=== PATIENT | female | born 1975 | race Caucasian/White ===

== ENCOUNTER 2016-05-31 15:01 | Outpatient (RCR) | payer OTHER ==
[~2016-05-31 15:01] MED LIST: /DULO30CA OR; /LAMO10TA OR; /PANT40TA OR; ABIL10TA; ABIL5TAB; AMBI5TAB; COLA100C2 OR; EFFE150C; EFFEXOR XR; Effexor XR OR; KLON0.5T; KLON0.5T OR; KLON1TAB OR; LAMI25TA OR; LOTRISONE; PAXI20TA OR; TRAZ50TA OR; ZYPR5TAB2 PO; [UNRECOGNIZED DRUG - OTHER] TOP
== END 2016-06-01 ==
LOC: M PT 15:01
PROVIDERS: ATTEND Orthopaedic Surgery
DX: Z51.89 Encounter for other specified aftercare (principal); M54.12 Radiculopathy, cervical region

== ENCOUNTER → 2017-08-16 | Outpatient (REF) ==
[2017-08-18 08:06] LABS: HERPES ZOSTER, VARICELLA IgG 263 index (Immune >165)
== END ==
LOC: M LAB 14:24
DX: Z00.00 Encounter for general adult medical examination without abnormal findings (principal)

== ENCOUNTER → 2018-02-10 | Outpatient (CLI) | payer BC | LOC: M WHC 15:15 | DX: Z12.31 Encounter for screening mammogram for malignant neoplasm of breast (principal); Z80.0 Family history of malignant neoplasm of digestive organs | CPT/HCPCS: 77067 ==

== ENCOUNTER → 2018-02-10 | Outpatient (REF) | payer BC ==
[2018-02-14 15:09] LABS: HPV HYBRID CAPTURE II Negative (Negative)
== END ==
LOC: M SFHCWAGY 15:41
DX: Z12.4 Encounter for screening for malignant neoplasm of cervix (principal)
CPT/HCPCS: G0123

== ENCOUNTER → 2018-06-21 | Outpatient (REF) | payer BC | LOC: M LAB REF 18:24 | PROVIDERS: ATTEND Nurse Practitioner Women's Health | DX: C50.412 Malignant neoplasm of upper-outer quadrant of left female breast (principal) ==

== ENCOUNTER → 2018-09-02 | Outpatient (CLI) | payer BC ==
[~2018-09-02] MED LIST changes: -/DULO30CA OR; -/LAMO10TA OR; -/PANT40TA OR; +CYMB1CAP5 OR; +LAMI1TAB7 OR; +PROT1TAB2 OR
--- NOTE | 2018-09-02 14:19 | ECHO ---
DATE OF STUDY: 09/02/2018 REFERRING PHYSICIAN: Dr. Zenobia Richardson INDICATION: Breast cancer. HEIGHT: 163 cm. WEIGHT: 105 kg. DIMENSIONS: IVS: 1.0 LV: 5.0 LVPW: 1.0 LA: 3.9 Aorta: 2.8 IVC: 1.6 Mitral E wave velocity: 89 A wave: 110 E prime septal: 6.6 E prime lateral: 6.3 FINDINGS: The study is of fair technical quality with difficult visualization corresponding to patient's body habitus. Left ventricle is normal size and overall normal systolic function, I estimate left ventricular ejection fraction (LVEF) 55-60%. Right ventricle is also normal size and systolic function. Both atria appear normal. All four cardiac valves were reasonably well seen and appear normal. No pericardial effusion is noted. Inferior vena cava is normal size. Aortic root, aortic arch and visualized segment of abdominal aorta appear normal. Doppler interrogation: normal aortic valvular function, mild mitral insufficiency, trace tricuspid insufficiency, competent pulmonic valve. Estimated pulmonary artery pressure is within normal limits. Mitral inflow pattern and tissue Doppler imaging of mitral annulus reveal grade 1 diastolic dysfunction. CONCLUSIONS: 1. Study is of fair technical quality corresponding to patient's body habitus. 2. Normal LV size with preserved LV systolic function and grade 1 diastolic dysfunction. 3. No significant valvular disease. 4. Likely normal central venous pressure and normal pulmonary artery pressure. COMMENT: Subacute bacterial endocarditis (SBE) prophylaxis is not recommended. MTDD
== END ==
LOC: M CARPUL 09:01
PROVIDERS: ATTEND Internal Medicine Hematology & Oncology
DX: Z17.0 Estrogen receptor positive status [ER+] (principal); C50.911 Malignant neoplasm of unspecified site of right female breast

== ENCOUNTER → 2018-12-08 | Outpatient (CLI) | payer BC ==
[~2018-12-08] MED LIST changes: +BUSP5TA PO; +CLON1TAB8 PO; +FLUO10CA15 PO; +HYDR50TA70 PO; +PARO40TA3 PO; +TRAZ-252 PO
--- NOTE | 2018-12-08 21:09 | ECHO ---
DATE OF PROCEDURE: 12/08/2018 DATE OF : 1975 AGE: 43 REFERRING PROVIDER: Dr. Richardson PATIENT LOCATION: Outpatient. REASON FOR THE ECHOCARDIOGRAM: Chemotherapy drug monitoring. 2D MEASUREMENTS: IVS: 1.0 cm LV: 5.1 cm LVPW: 1.0 cm LA: 4.0 cm Aorta: 2.8 cm RV: 2.7 cm IVC: 2.4 cm DOPPLER MEASUREMENTS: Peak velocity across the aortic valve: 1.3 m/s Peak velocity across the LVOT: 0.97 m/s Mitral E: 1.3, Mitral A: 1.0 with a ratio of 1.3 Maximum tricuspid valve velocity: 2.6 m/s 2D COMMENTS: 1. Normal left ventricular size, wall thickness, and normal global left ventricular systolic function. The estimated left ventricular systolic ejection fraction is 60-65%. 2. Mildly enlarged left atrium. Normal right atrium and right ventricle. 3. The atrial septum appeared to be normal without evidence of defect or shunt. 4. Normal aortic root. 5. No pericardial effusion seen. 6. The aortic valve, mitral valve, tricuspid valve, and pulmonic valve appear to be normal. The proximal pulmonary artery branches were not well visualized. 7. The inferior vena cava was mildly enlarged, central venous pressure might be elevated. DOPPLER: It detects moderately severe mitral regurgitation, mild tricuspid regurgitation, mild pulmonic regurgitation. The calculated pulmonary artery systolic pressure varies between 30-40 mmHg. Assessment of the left ventricular diastolic function appeared to be normal. IMPRESSION: 1. Normal global left ventricular systolic and diastolic function. 2. Moderately severe mitral regurgitation with mildly enlarged left atrium. 3. Mild tricuspid regurgitation with mild pulmonary hypertension. 4. Mild pulmonic regurgitation. 5. The global longitudinal strain was reported to be 17.3%, about normal. MTDD
== END ==
LOC: M CARPUL 09:32
PROVIDERS: ATTEND Internal Medicine Hematology & Oncology
DX: Z79.899 Other long term (current) drug therapy (principal); C50.912 Malignant neoplasm of unspecified site of left female breast; Z17.0 Estrogen receptor positive status [ER+]

== ENCOUNTER → 2019-03-17 | Outpatient (CLI) | payer BC ==
[~2019-03-17] MED LIST changes: -BUSP5TA PO; -CLON1TAB8 PO; -FLUO10CA15 PO; -HYDR50TA70 PO; -PARO40TA3 PO; -TRAZ-252 PO
--- NOTE | 2019-03-17 13:48 | ECHO ---
DATE OF PROCEDURE: 03/17/2019 REFERRING PHYSICIAN: Dr. Moreno INDICATION: Chemotherapy. Height 163 cm, weight 104 kg. DIMENSIONS: IVS: 1.0 LV: 5.1 LVPW: 1.0 LA: 4.1 Aorta: 2.7 RV: 2.6 IVC: 1.5 Left atrial volume index: 34 Mitral E wave velocity: 79 A wave: 89 E prime septal: 6.3 E prime lateral: 5.8 FINDINGS: The study is of acceptable technical quality. The patient is in sinus rhythm. Left ventricle is of normal size and systolic function, I estimate left ventricular ejection fraction (LVEF) approximately 60-65%. Computer calculated left ventricle ejection fraction was 51%, which in my opinion is not accurate determination. Right ventricle is normal size and systolic function. Left atrium is mildly to moderately enlarged. Right atrium appears to be normal size. All four cardiac valves were reasonably well seen and appear normal. No pericardial effusion is noted. Inferior vena cava is normal size. Aortic root and aortic arch appear normal. Doppler interrogation reveals competent aortic valve. There is mild mitral insufficiency. There is trace tricuspid insufficiency. Calculated pulmonary artery pressure is within normal limits. Pulmonic valve is functionally competent. Mitral inflow pattern and tissue Doppler imaging of mitral annulus revealed grade 1 diastolic dysfunction. CONCLUSIONS: 1. Study is of good technical quality. 2. Normal LV size and systolic function. Grade 1 diastolic dysfunction. 3. No hemodynamically significant valvular disease. 4. Normal central venous pressure and normal pulmonary artery pressure. 5. Compared to report of echocardiogram from November 2018, the left ventricular systolic function remains preserved but severity of mitral insufficiency is much less on today's study.
== END ==
LOC: M CARPUL 10:26
PROVIDERS: ATTEND Internal Medicine Hematology & Oncology
DX: Z51.81 Encounter for therapeutic drug level monitoring (principal); Z79.899 Other long term (current) drug therapy

== ENCOUNTER 2019-04-17 10:07 | Inpatient (IN) | payer BC ==
[~2019-04-17] VITALS: Ht 165.1 cm; Wt 104.3 kg
[2019-04-17] MEDS ORDERED: CLON1TAB8 PO (10:15)
[2019-04-17 10:48] LABS: HEMATOCRIT 42.9 % (36.0-47.0); HEMOGLOBIN 13.7 g/dl (12.0-15.5); MEAN CORPUSCULAR HEMOGLOBIN 24.9 pg (27.0-33.0); MEAN CORPUSCULAR HGB CONC 31.9 g/dl (32.0-36.5); PLATELET COUNT, AUTOMATED 345 10^3/uL (150-450); WHITE BLOOD COUNT 7.4 10^3/uL (4.0-10.0)
[2019-04-17 11:11] LABS: HCG, SERUM QUALITATIVE NEGATIVE (NEGATIVE)
[2019-04-17 11:12] LABS: AMPHETAMINES LEVEL URINE NEGATIVE (NEGATIVE); BARBITURATES URINE NEGATIVE (NEGATIVE); BENZODIAZEPINES URINE NEGATIVE (NEGATIVE); CANNABINOIDS URINE NEGATIVE (NEGATIVE); COCAINE METABOLITE URINE NEGATIVE (NEGATIVE); METHADONE URINE NEGATIVE (NEGATIVE); OPIATES URINE NEGATIVE (NEGATIVE); PHENCYCLIDINE URINE NEGATIVE (NEGATIVE)
[2019-04-17 11:20] LABS: ACETAMINOPHEN LEVEL 6.5 UG/ML (10.0-30.0); ALBUMIN 3.4 GM/DL (3.2-5.2); ALT/SGPT 18 U/L (12-78); BILIRUBIN,DIRECT 0.1 MG/DL (0.0-0.2); BILIRUBIN,TOTAL 0.6 MG/DL (0.2-1.0); BLOOD UREA NITROGEN 9 MG/DL (7-18); CALCIUM LEVEL 8.9 MG/DL (8.5-10.1); CARBON DIOXIDE LEVEL 26 MEQ/L (21-32); CHLORIDE LEVEL 108 MEQ/L (98-107); CREATININE FOR GFR 1.03 MG/DL (0.55-1.30); ETHYL ALCOHOL (ETHANOL) < 0.003 % (0.000-0.010); GLOMERULAR FILTRATION RATE > 60.0 (>58); GLUCOSE, FASTING 98 MG/DL (70-100); POTASSIUM SERUM 3.9 MEQ/L (3.5-5.1); SALICYLATE LEVEL < 1.7 MG/DL (5.0-30.0); SODIUM LEVEL 141 MEQ/L (136-145); TOTAL PROTEIN 6.9 GM/DL (6.4-8.2)
[2019-04-17] MEDS ORDERED: PARO40TA3 PO (13:17)
[2019-04-17] MEDS ORDERED: MOM 30ML SUSPENSION UDC PO PRN (15:45)
[2019-04-17] MEDS ORDERED: MAALOX 30 ML SUSP *UDC PO PRN (15:45)
[2019-04-17 17:00] VITALS: BP 148/83
[2019-04-17] MEDS: traZODone 50 MG TAB PO PRN (20:57)
[2019-04-18 06:31] VITALS: BP 124/66
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
[2019-04-18] MEDS ORDERED: hydrOXYzine 50 MG TAB PO PRN (11:15)
[2019-04-18] MEDS ORDERED: clonazePAM 0.5 MG TAB PO ONE (12:00)
[2019-04-18] MEDS ORDERED: busPIRone 5 MG TAB PO ONE (12:00)
[2019-04-18] MEDS ORDERED: FLUoxetine 20 MG CAP PO ONE (12:00)
[2019-04-18] MEDS ORDERED: PARoxetine 20 MG TAB PO ONE (12:00)
[2019-04-18] MEDS: ACETAMINOPHEN TAB 650MG DOSE (2X325MG) PO PRN (14:31)
[2019-04-18] MEDS: busPIRone 5 MG TAB PO SCH ×2 (15:37→20:01)
[2019-04-18 16:32] VITALS: BP 122/66
[2019-04-18] MEDS: clonazePAM 0.5 MG TAB PO SCH (20:00)
[2019-04-19 06:10] VITALS: BP 142/66
[2019-04-19] MEDS: FLUoxetine 20 MG CAP PO SCH (09:09)
[2019-04-19] MEDS: busPIRone 5 MG TAB PO SCH ×3 (09:10→20:17)
[2019-04-19] MEDS: clonazePAM 0.5 MG TAB PO SCH ×2 (09:10→20:17)
[2019-04-19] MEDS: PARoxetine 20 MG TAB PO SCH (09:10)
[2019-04-19] MEDS: ACETAMINOPHEN TAB 650MG DOSE (2X325MG) PO PRN (09:14)
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
--- NOTE | 2019-04-19 13:13 | HPEPDOC ---
General Date of Admission Apr 17, 2019 at 15:38 Date of Service: Apr 19, 2019 Chief Complaint The patient is a 44-year-old female admitted with a reason for visit of Unspecified Depressive Disorder. Source: Patient Exam Limitations: No limitations Associated Symptoms: Denies Symptoms History of Present Illness Mrs. Estrella is a 44 year old female admitted to the [facility] due to Depression and Suicidal Ideation. Mrs. Estrella is being assessed by the hospitalist team for medical comorbidities. Pt only takes her psych meds. Pt denied any acute or chronic medical issues at this time. Home Medications Scheduled Paroxetine HCl (Paroxetine) 40 Mg Tablet, 40 MG PO DAILY, (Reported) Scheduled PRN Clonazepam (Clonazepam) 1 Mg Tablet, 1 MG PO DAILY PRN for ANXIETY, (Reported) Allergies Coded Allergies: No Known Drug Allergies (Verified Allergy, Unknown, 04/17/19) Past Medical History Medical History Depression Breast Cancer (L breast) HTN Cholelithiasis Pyelonephritis Surgical History Cholecystectomy Lumpectomy (L breast) Family History Significant Family History: Heart disease (Mother ), Other (Alcoholism - siblings, father. Depression - mother and sisters) Social History * Smoker: former Smoker Alcohol: rarely Drugs: denies A-FIB/CHADSVASC A-FIB History Current/History of A-Fib/PAF?: No Current PO Anticoag Therapy: No Review of Systems Constitutional: Denies: Chills, Fever, Night Sweats Eyes: Denies: Pain ENT: Denies: Head Aches Skin: Denies: Rash Pulmonary: Denies: Dyspnea, Cough Cardiovascular: Denies: Chest Pain, Palpitations, Lt Headedness Gastrointestinal: Denies: Nausea, Vomiting, Abdominal Pain Genitourinary: Denies: Dysuria, Retention Hematologic: Denies: Bruising Musculoskeletal: Denies: Neck Pain, Back Pain, Joint Pain, Muscle Pain, Spasms Neurological: Denies: Weakness, Numbness Psych: Reports: Mood Normal; Denies: Depression, Memory Issues Physical Examination General Exam: Positive: Alert, Cooperative, No Acute Distress Eye Exam: Positive: PERRLA, Conjunctiva & lids normal ENT Exam: Positive: Atraumatic, Mucous membr. moist/pink, Pharynx Normal Neck Exam: Positive: Supple; Negative: thyromegaly Chest Exam: Positive: Clear to auscultation, Normal air movement Heart Exam: Positive: Rate Normal, Normal S1, Normal S2; Negative: Murmurs, Rubs Abdomen Exam: Positive: Soft; Negative: Tenderness Extremity Exam: Positive: Normal pulses; Negative: Clubbing, Cyanosis, Edema Skin Exam: Positive: Nl turgor and temperature Neuro Exam: Positive: Normal Gait, Normal Speech, Cranial Nerves 3-12 NL Psych Exam: Positive: Mood NL, Oriented x 3 Vital Signs Vital Signs Date Time Temp Pulse Resp B/P (MAP) Pulse Ox O2 Delivery O2 Flow Rate FiO2 04/19/19 06:10 97.5 65 16 142/66 (91) 04/18/19 06:31 Room Air 04/17/19 17:00 100 Assessment/Plan Mrs. Estrella is a 44 year old female admitted to the [facility] due to Depression and Suicidal Ideation. Mrs. Estrella is being assessed by the hospitalist team for medical comorbidities. Pt has a PMHx that includes: Breast Cancer (L breast), HTN, Cholelithiasis, Pyelonephritis. Pt only takes her psych meds at this time. She was Rx Tamoxifen following a L-sided lumpectomy, chemo and radiation. She has decided to d/c that medication. Oncologist aware. Pt denied any other acute or chronic medical issues at this time. Depression: - Management per psychiatry Breast Cancer (L breast): - pt decided to d/c chemo antineoplastic medication - oncologist aware HTN - no Rx medications at this time Medicine will sign off at this time. Please re-consult as needed. Plan / VTE VTE Prophylaxis Ordered?: No DION MAR PA-C Apr 19, 2019 13:13
[2019-04-19 16:34] VITALS: BP 150/90
[2019-04-20 06:16] VITALS: BP 142/72
[2019-04-20] MEDS: FLUoxetine 20 MG CAP PO SCH (09:04)
[2019-04-20] MEDS: clonazePAM 0.5 MG TAB PO SCH ×2 (09:05→21:20)
[2019-04-20] MEDS: PARoxetine 20 MG TAB PO SCH (09:05)
[2019-04-20] MEDS: busPIRone 5 MG TAB PO SCH ×3 (09:05→21:20)
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
[2019-04-20] MEDS ORDERED: PILL CUTTER 1 EACH XX PRN (11:15)
[2019-04-20 16:06] VITALS: BP 153/72
[2019-04-21 06:36] VITALS: BP 145/84
[2019-04-21] MEDS: clonazePAM 0.5 MG TAB PO SCH ×2 (08:22→21:07)
[2019-04-21] MEDS: busPIRone 5 MG TAB PO SCH ×3 (08:22→21:07)
[2019-04-21] MEDS: PARoxetine 10MG TABLET PO SCH (08:22)
[2019-04-21] MEDS: FLUoxetine 10 MG CAP PO SCH (08:22)
--- NOTE | 2019-04-21 14:29 | MHIPN ---
DATE: 04/21/2019 VITAL SIGNS: Blood pressure 145/84. Pulse 64. Temperature 97.9. CHIEF COMPLAINT: Feels upset. SUBJECTIVE: Seen for followup, in the presence of staff. Has been feeling upset this morning, says had a phone call from her who now wishes for a separation, but still wants to go for marriage counseling, this is a change of stance on his part apparently. She feels tired emotionally. Sleep is fair. Appetite has gone down. She has been using fluids. Denies any active suicidal thoughts or intents. MENTAL STATUS EXAMINATION: She is fairly neat. She is cooperative. No agitation. No psychomotor retardation. Fair to good eye contact. She denies any active suicidal thoughts at present or any such plans, but feels emotionally tired. No homicidal ideas or intents. No evidence of any psychosis. Cognition grossly intact. Judgment and insight are fair. ASSESSMENT: Major depressive disorder. PLAN: Continue current observations and care, is being titrated off clonazepam. She is also on Prozac and Paxil, these are being cross-titrated, as she has not found the Paxil helpful. She requests Zydis Zyprexa rather using hydroxyzine, she has used Zydis in the past, and has found it to be useful, and I find that that is quite fair, we will prescribe her the Zydis and discontinue the hydroxyzine. The Zydis is to be used temporarily to help with diminishing her distress and agitation. Will continue with the rest of the observations, and she is to be encouraged to participate in activities in the unit. She agrees with the plan.
[2019-04-21 15:57] VITALS: BP 152/68
[2019-04-21] MEDS: OLANZapine ORAL DISINTEGRATING TAB 5MG PO PRN (17:38)
[2019-04-21] MEDS: traZODone 50 MG TAB PO PRN (21:07)
[2019-04-22 06:43] VITALS: BP 156/66
[2019-04-22] MEDS: FLUoxetine 10 MG CAP PO SCH (09:01)
[2019-04-22] MEDS: busPIRone 5 MG TAB PO SCH ×3 (09:01→21:32)
[2019-04-22] MEDS: PARoxetine 10MG TABLET PO SCH (09:01)
[2019-04-22] MEDS: clonazePAM 0.5 MG TAB PO SCH ×2 (09:02→21:33)
[2019-04-22] MEDS: OLANZapine ORAL DISINTEGRATING TAB 5MG PO PRN (13:33)
[2019-04-22 15:37] VITALS: BP 125/58
[2019-04-23 06:42] VITALS: BP 135/80
[2019-04-23] MEDS: clonazePAM 0.5 MG TAB PO SCH (08:17)
[2019-04-23] MEDS: PARoxetine 10MG TABLET PO SCH (08:17)
[2019-04-23] MEDS: busPIRone 5 MG TAB PO SCH (08:18)
[2019-04-23] MEDS: FLUoxetine 10 MG CAP PO SCH (08:18)
[2019-04-23] MEDS ORDERED: FLUO10CA15 PO (08:47)
[2019-04-23] MEDS ORDERED: BUSP5TA PO (08:47)
[2019-04-23] MEDS ORDERED: TRAZ-252 PO (08:47)
[2019-04-23] MEDS ORDERED: HYDR50TA70 PO (08:47)
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
== END 2019-04-23 11:25 | disposition home or self-care (01) | DRG 754 ==
LOC: M ED 10:07 → M ED INP 15:38 → M PSY 17:22
PROVIDERS: ADMIT Psychiatry & Neurology Psychiatry; ATTEND Psychiatry & Neurology Psychiatry
DX: F32.9 Major depressive disorder, single episode, unspecified (principal); F43.23 Adjustment disorder with mixed anxiety and depressed mood; F41.9 Anxiety disorder, unspecified; Z85.3 Personal history of malignant neoplasm of breast; Z63.0 Problems in relationship with spouse or partner; Z79.899 Other long term (current) drug therapy; Z90.49 Acquired absence of other specified parts of digestive tract; Z92.21 Personal history of antineoplastic chemotherapy; Z92.3 Personal history of irradiation; Z87.891 Personal history of nicotine dependence; Z81.8 Family history of other mental and behavioral disorders; I10 Essential (primary) hypertension

== ENCOUNTER → 2019-04-27 | Outpatient (CLI) | payer BC ==
[~2019-04-27] MED LIST changes: +BUSP5TA PO; +CLON1TAB8 PO; +FLUO10CA15 PO; +HYDR50TA70 PO; +PARO40TA3 PO; +TRAZ-252 PO
--- NOTE | 2019-05-07 15:31 | DEXA ---
AP SPINE L1 - L4 1.248 0.4 0.4 LT FEMUR TOTAL 0.994 -0.1 0.2 LT NECK 0.932 -0.8 -0.2 RT FEMUR TOTAL 1.076 0.5 0.8 RT NECK 1.044 0.0 0.6 TOTAL BODY TOTAL OTHER COMMENTS: Normal bone densitometry of the spine and hips. FOLLOW-UP: Recommendation for the next bone density exam: 5 years. MAURICIO
== END ==
LOC: M WHC 12:37
PROVIDERS: ATTEND Internal Medicine Hematology & Oncology
DX: M89.9 Disorder of bone, unspecified (principal)

== ENCOUNTER 2019-06-07 02:40 | Emergency (ER) | payer BC ==
[~2019-06-07] VITALS: Ht 165.1 cm; Wt 102.3 kg
[2019-06-07] MEDS ORDERED: PAXI40TA10 PO (03:05)
[2019-06-07] MEDS ORDERED: LORazepam 0.5 MG TAB PO ONE (03:45)
[2019-06-07 05:06] LABS: BASO % 0.3 % (0.0-1.0); EOS # 0.1 10^3/uL (0.0-0.5); EOS % 1.6 % (0.0-3.0); HEMATOCRIT 44.1 % (36.0-47.0); HEMOGLOBIN 13.5 g/dl (12.0-15.5); LYMPH # 1.1 10^3/uL (1.5-5.0); LYMPH % 15.8 % (24.0-44.0); MEAN CORPUSCULAR HEMOGLOBIN 24.5 pg (27.0-33.0); MEAN CORPUSCULAR HGB CONC 30.6 g/dl (32.0-36.5); MEAN CORPUSCULAR VOLUME 80.2 fl (80.0-96.0); MONO # 0.4 10^3/uL (0.0-0.8); MONO % 5.9 % (0.0-5.0); NEUTROPHILS # 5.2 10^3/uL (1.5-8.5); NEUTROPHILS % 75.8 % (36.0-66.0); PLATELET COUNT, AUTOMATED 321 10^3/uL (150-450); WHITE BLOOD COUNT 6.9 10^3/uL (4.0-10.0)
[2019-06-07 05:26] LABS: BLOOD UREA NITROGEN 13 MG/DL (7-18); CALCIUM LEVEL 8.8 MG/DL (8.5-10.1); CARBON DIOXIDE LEVEL 29 MEQ/L (21-32); CHLORIDE LEVEL 112 MEQ/L (98-107); CK-MB VALUE MASS < 1.0 NG/ML (<3.6); CPK CREATINE PHOSPHOKINASE 102 U/L (26-192); CREATININE FOR GFR 0.86 MG/DL (0.55-1.30); GLOMERULAR FILTRATION RATE > 60.0 (>58); GLUCOSE, FASTING 109 MG/DL (70-100); MB/CK RELATIVE INDEX 0.98 (< OR =4); POTASSIUM SERUM 4.2 MEQ/L (3.5-5.1); SODIUM LEVEL 147 MEQ/L (136-145); TROPONIN I < 0.02 NG/ML (< 0.10)
[2019-06-07 06:54] VITALS: BP 144/69
--- NOTE | 2019-06-07 07:37 | REP ---
Portable chest, 04:54 a.m., single AP view with the the patient upright: Comparison is the PA and lateral chest of 03/04/2015. There has been interval placement of a right IJ Ljwhgx-J-Jkiv catheter with the tip in the superior vena cava in satisfactory location. There is no pneumothorax or pleural fluid collection. Lung alonso are clear. Cardiac size normal. The michelle, mediastinum, skeletal structures are unremarkable. Impression: The right IJ Amghfo-F-Ampw catheter. Otherwise, negative portable chest. Electronically Signed by Yann Munoz MD 06/07/2019 07:29 A
--- NOTE | 2019-06-07 15:15 | ECGEPIP ---
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
== END 2019-06-07 06:55 | disposition home or self-care (01) ==
LOC: M ED 02:40
DX: F41.0 Panic disorder [episodic paroxysmal anxiety] (principal); F41.1 Generalized anxiety disorder; Z85.3 Personal history of malignant neoplasm of breast; Z45.2 Encounter for adjustment and management of vascular access device; Z79.899 Other long term (current) drug therapy

== ENCOUNTER → 2019-06-16 | Outpatient (CLI) | payer BC ==
[~2019-06-16] MED LIST changes: +PAXI40TA10 PO
--- NOTE | 2019-06-16 14:53 | ECHO ---
DATE OF PROCEDURE: 06/16/2019 REFERRING PHYSICIAN: Dr. Zenobia Richardson INDICATION: Chemotherapy. HEIGHT: 5 feet 5 inches. WEIGHT: 223 pounds. DIMENSIONS: IVS - 1.1 LV - 5.0 LVW - 1.1 LA - 4.0 Aorta - 3.0 RV - 3.9. Left atrium volume index -35 IVC - 1.9 Mitral E wave velocity - 86, A-wave 97 E prime septal - 6.2, E prime lateral - 7.2 FINDINGS: The study is of acceptable technical quality. The patient is in sinus rhythm. Left ventricle is of normal size and normal systolic function. I estimate LV ejection fraction (EF) around 60-65%. Computer calculated left ventricular ejection fraction (LVEF) is 54%, which seems to me too low. Right ventricle is normal size and systolic function. Both atria are at least mildly enlarged. Considering left atrial volume index there is moderate left atrial enlargement. Aortic, mitral, tricuspid and pulmonic valves were all reasonably well seen. They all appear grossly normal. No pericardial effusion is noted. Inferior vena cava is on upper limits of normal size. Aortic root and aortic arch appear normal. Limited views of abdominal aorta also appear intact. Doppler interrogation reveals no aortic stenosis or insufficiency. There is trace mitral and tricuspid insufficiency. Calculated pulmonary artery pressure is within normal limits. Mitral inflow pattern and tissue Doppler imaging of mitral annulus reveal grade 1 diastolic dysfunction. There is reduced global longitudinal strain that was calculated as negative 16% CONCLUSION: 1. Study is of acceptable technical quality, the patient is in sinus rhythm. 2. Normal LV size and systolic function, grade 1 diastolic dysfunction. 3. No hemodynamically significant valvular disease. 4. Normal central venous pressure and likely normal pulmonary artery pressure. 5. Global longitudinal strain -16%. COMMENT: Subacute bacterial endocarditis (SBE) prophylaxis is not recommended. MTDD
== END ==
LOC: M CARPUL 08:59
PROVIDERS: ATTEND Internal Medicine Hematology & Oncology
DX: Z51.81 Encounter for therapeutic drug level monitoring (principal); Z79.899 Other long term (current) drug therapy

== ENCOUNTER 2019-09-24 16:00 | Emergency (ER) | payer BC ==
[~2019-09-24] VITALS: Ht 165.1 cm; Wt 104.6 kg
[2019-09-24] MEDS ORDERED: VALSARTAN 80 MG TAB (DIOVAN) PO ONE (16:30)
[2019-09-24 16:53] VITALS: BP 205/121
[2019-09-24 16:57] LABS: HEMATOCRIT 39.8 % (36.0-47.0); MEAN CORPUSCULAR HEMOGLOBIN 25.6 pg (27.0-33.0); MEAN CORPUSCULAR HGB CONC 32.7 g/dl (32.0-36.5); MEAN CORPUSCULAR VOLUME 78.3 fl (80.0-96.0); PLATELET COUNT, AUTOMATED 317 10^3/uL (150-450); RED BLOOD COUNT 5.08 10^6/uL (4.00-5.40); WHITE BLOOD COUNT 8.3 10^3/uL (4.0-10.0)
[2019-09-24] MEDS ORDERED: VALS1TAB66 (17:06)
[2019-09-24] MEDS ORDERED: CLON1TAB8 (17:06)
[2019-09-24 17:22] LABS: HCG, SERUM QUALITATIVE NEGATIVE (NEGATIVE)
[2019-09-24 17:26] LABS: ACETAMINOPHEN LEVEL < 2.0 UG/ML (10.0-30.0); ALBUMIN 3.7 GM/DL (3.2-5.2); ALT/SGPT 32 U/L (12-78); BILIRUBIN,DIRECT < 0.1 MG/DL (0.0-0.2); BILIRUBIN,TOTAL 0.3 MG/DL (0.2-1.0); BLOOD UREA NITROGEN 16 MG/DL (7-18); CALCIUM LEVEL 8.8 MG/DL (8.5-10.1); CARBON DIOXIDE LEVEL 25 MEQ/L (21-32); CHLORIDE LEVEL 108 MEQ/L (98-107); CREATININE FOR GFR 1.04 MG/DL (0.55-1.30); ETHYL ALCOHOL (ETHANOL) < 0.003 % (0.000-0.010); GLOMERULAR FILTRATION RATE > 60.0 (>58); GLUCOSE, FASTING 117 MG/DL (70-100); POTASSIUM SERUM 3.6 MEQ/L (3.5-5.1); SALICYLATE LEVEL < 1.7 MG/DL (5.0-30.0); SODIUM LEVEL 142 MEQ/L (136-145); TOTAL PROTEIN 6.7 GM/DL (6.4-8.2)
[2019-09-24 17:29] LABS: AMPHETAMINES LEVEL URINE NEGATIVE (NEGATIVE); BARBITURATES URINE NEGATIVE (NEGATIVE); BENZODIAZEPINES URINE POSITIVE (NEGATIVE); CANNABINOIDS URINE NEGATIVE (NEGATIVE); COCAINE METABOLITE URINE NEGATIVE (NEGATIVE); METHADONE URINE NEGATIVE (NEGATIVE); OPIATES URINE NEGATIVE (NEGATIVE); PHENCYCLIDINE URINE NEGATIVE (NEGATIVE)
--- NOTE | 2019-09-24 17:59 | ECGEPIP ---
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
[2019-09-25 02:44] VITALS: BP 122/68
== END 2019-09-25 02:45 ==
LOC: M ED 16:00
DX: R45.851 Suicidal ideations (principal); I10 Essential (primary) hypertension; F33.9 Major depressive disorder, recurrent, unspecified; Z79.899 Other long term (current) drug therapy
CPT/HCPCS: 36415; 80048; 80076; 80307; 81001; 84443; 84703; 85027; 93005; 99284; G0480; U0002

== ENCOUNTER 2019-10-26 16:03 | Emergency (ER) | payer BC ==
[~2019-10-26] VITALS: Ht 165.1 cm; Wt 104.3 kg
[~2019-10-26 16:03] MED LIST changes: +CLON1TAB8; -FLUO10CA15 PO; +FLUO10CA16 PO; +VALS1TAB66
[2019-10-26] MEDS ORDERED: PROP20TA72 PO (16:14)
[2019-10-26] MEDS ORDERED: CLON2TAB7 PO (16:14)
[2019-10-26] MEDS ORDERED: VENL150C43 PO (16:14)
[2019-10-26 17:13] LABS: HEMATOCRIT 42.9 % (36.0-47.0); HEMOGLOBIN 13.7 g/dl (12.0-15.5); MEAN CORPUSCULAR HGB CONC 31.9 g/dl (32.0-36.5); MEAN CORPUSCULAR VOLUME 81.6 fl (80.0-96.0); PLATELET COUNT, AUTOMATED 302 10^3/uL (150-450); RED BLOOD COUNT 5.26 10^6/uL (4.00-5.40); WHITE BLOOD COUNT 9.5 10^3/uL (4.0-10.0)
[2019-10-26 17:36] LABS: AMPHETAMINES LEVEL URINE NEGATIVE (NEGATIVE); BARBITURATES URINE NEGATIVE (NEGATIVE); BENZODIAZEPINES URINE POSITIVE (NEGATIVE); CANNABINOIDS URINE NEGATIVE (NEGATIVE); COCAINE METABOLITE URINE NEGATIVE (NEGATIVE); METHADONE URINE NEGATIVE (NEGATIVE); OPIATES URINE NEGATIVE (NEGATIVE); PHENCYCLIDINE URINE NEGATIVE (NEGATIVE)
[2019-10-26 17:46] LABS: ACETAMINOPHEN LEVEL < 2.0 UG/ML (10.0-30.0); ALBUMIN 3.5 GM/DL (3.2-5.2); ALT/SGPT 19 U/L (12-78); BILIRUBIN,DIRECT < 0.1 MG/DL (0.0-0.2); BILIRUBIN,TOTAL 0.3 MG/DL (0.2-1.0); BLOOD UREA NITROGEN 13 MG/DL (7-18); CALCIUM LEVEL 9.1 MG/DL (8.5-10.1); CARBON DIOXIDE LEVEL 22 MEQ/L (21-32); CHLORIDE LEVEL 110 MEQ/L (98-107); CREATININE FOR GFR 0.91 MG/DL (0.55-1.30); ETHYL ALCOHOL (ETHANOL) < 0.003 % (0.000-0.010); GLOMERULAR FILTRATION RATE > 60.0 (>58); GLUCOSE, FASTING 96 MG/DL (70-100); SALICYLATE LEVEL < 1.7 MG/DL (5.0-30.0); SODIUM LEVEL 138 MEQ/L (136-145); TOTAL PROTEIN 6.7 GM/DL (6.4-8.2)
[2019-10-26 18:03] LABS: HCG, SERUM QUALITATIVE NEGATIVE (NEGATIVE)
--- NOTE | 2019-10-26 21:01 | ECGEPIP ---
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
[2019-10-26 22:41] VITALS: BP 135/87
== END 2019-10-26 22:44 ==
LOC: M ED 16:03
DX: R45.851 Suicidal ideations (principal); F32.9 Major depressive disorder, single episode, unspecified; I10 Essential (primary) hypertension; E66.9 Obesity, unspecified; Z85.3 Personal history of malignant neoplasm of breast; Z79.899 Other long term (current) drug therapy
CPT/HCPCS: 80048; 80076; 80307; 84443; 84703; 85027; 87486; 87581; 87633; 87798; 93005; 99285; G0480

== ENCOUNTER → 2019-12-27 | Outpatient (CLI) | payer BC ==
[~2019-12-27] MED LIST changes: +CLON2TAB7 PO; +PROP20TA72 PO; +VENL150C43 PO
[2019-12-27 15:09] LABS: BLOOD UREA NITROGEN 14 MG/DL (7-18); CREATININE FOR GFR 0.88 MG/DL (0.55-1.30); GLOMERULAR FILTRATION RATE > 60.0 (>58)
== END ==
LOC: M PLALAB 12:41
PROVIDERS: ATTEND Surgery
DX: Z01.812 Encounter for preprocedural laboratory examination (principal)

== ENCOUNTER → 2020-03-19 | Outpatient (CLI) | payer SELFPAY | LOC: M LABSMTC 12:17 | PROVIDERS: ATTEND Pediatrics | DX: Z20.828 Contact with and (suspected) exposure to other viral communicable diseases (principal) ==

== ENCOUNTER → 2020-04-04 | Outpatient (REF) | payer SELFPAY | LOC: M LABSMTC 08:35 → EDSTATUS 13:15 → M LABSMTC 14:01 | PROVIDERS: ATTEND Pediatrics | DX: Z20.828 Contact with and (suspected) exposure to other viral communicable diseases (principal) ==

== ENCOUNTER → 2020-06-17 | Outpatient (REF) | payer BC ==
[2020-06-18 13:56] LABS: CHLAMYDIA DNA AMPLIFICATION NEGATIVE (NEGATIVE); GC DNA AMPLIFICATION NEGATIVE (NEGATIVE)
== END ==
LOC: M SFHCWAGY 09:40
PROVIDERS: ATTEND Nurse Practitioner Women's Health
DX: Z01.419 Encounter for gynecological examination (general) (routine) without abnormal findings (principal); Z11.3 Encounter for screening for infections with a predominantly sexual mode of transmission; Z77.9 Other contact with and (suspected) exposures hazardous to health
CPT/HCPCS: 87624; 87661; G0123

== ENCOUNTER 2020-07-09 08:40 | Emergency (ER) | payer BC, SELFPAY ==
[~2020-07-09] VITALS: Ht 165.1 cm; Wt 95.9 kg
[2020-07-09] MEDS ORDERED: CHARCOAL ACTIVATED LIQUID 25 GM/120 ML BTL PO ONE (08:50)
[2020-07-09 09:08] LABS: BASO % 0.6 % (0.0-1.0); EOS # 0.2 10^3/uL (0.0-0.5); EOS % 2.8 % (0.0-3.0); HEMATOCRIT 43.6 % (36.0-47.0); HEMOGLOBIN 14.1 g/dl (12.0-15.5); LYMPH # 1.4 10^3/uL (1.5-5.0); LYMPH % 21.7 % (24.0-44.0); MEAN CORPUSCULAR HEMOGLOBIN 26.8 pg (27.0-33.0); MEAN CORPUSCULAR HGB CONC 32.3 g/dl (32.0-36.5); MEAN CORPUSCULAR VOLUME 82.7 fl (80.0-96.0); MONO # 0.5 10^3/uL (0.0-0.8); NEUTROPHILS # 4.4 10^3/uL (1.5-8.5); NEUTROPHILS % 67.3 % (36.0-66.0); PLATELET COUNT, AUTOMATED 309 10^3/uL (150-450); RED BLOOD COUNT 5.27 10^6/uL (4.00-5.40); WHITE BLOOD COUNT 6.5 10^3/uL (4.0-10.0)
[2020-07-09 09:39] LABS: ACETAMINOPHEN LEVEL < 2.0 UG/ML (10.0-30.0); ALBUMIN 3.5 GM/DL (3.2-5.2); ALT/SGPT 22 U/L (12-78); BILIRUBIN,DIRECT < 0.1 MG/DL (0.0-0.2); BILIRUBIN,TOTAL 0.2 MG/DL (0.2-1.0); BLOOD UREA NITROGEN 12 MG/DL (7-18); CALCIUM LEVEL 8.7 MG/DL (8.5-10.1); CARBON DIOXIDE LEVEL 23 MEQ/L (21-32); CHLORIDE LEVEL 112 MEQ/L (98-107); CPK CREATINE PHOSPHOKINASE 65 U/L (26-192); CREATININE FOR GFR 0.72 MG/DL (0.55-1.30); ETHYL ALCOHOL (ETHANOL) < 0.003 % (0.000-0.010); GLOMERULAR FILTRATION RATE > 60.0 (>58); GLUCOSE, FASTING 97 MG/DL (70-100); POTASSIUM SERUM 4.2 MEQ/L (3.5-5.1); SALICYLATE LEVEL < 1.7 MG/DL (5.0-30.0); SODIUM LEVEL 142 MEQ/L (136-145); TOTAL PROTEIN 6.6 GM/DL (6.4-8.2)
[2020-07-09 09:41] LABS: HCG, SERUM QUALITATIVE NEGATIVE (NEGATIVE)
[2020-07-09 09:42] LABS: AMPHETAMINES LEVEL URINE NEGATIVE (NEGATIVE); BARBITURATES URINE NEGATIVE (NEGATIVE); BENZODIAZEPINES URINE NEGATIVE (NEGATIVE); CANNABINOIDS URINE NEGATIVE (NEGATIVE); COCAINE METABOLITE URINE NEGATIVE (NEGATIVE); METHADONE URINE NEGATIVE (NEGATIVE); OPIATES URINE NEGATIVE (NEGATIVE); PHENCYCLIDINE URINE NEGATIVE (NEGATIVE)
[2020-07-09] MEDS ORDERED: NS 1,000 ML IV ONE (09:55)
[2020-07-09 10:18] LABS: OSMOLALITY SERUM 289 MOSM/KG (275-295)
[2020-07-09 19:07] LABS: RSV AMPLIFICATION NEGATIVE (NEGATIVE)
[2020-07-09] MEDS ORDERED: ACETAMINOPHEN TAB 650MG DOSE (2X325MG) PO ONE (20:45)
[2020-07-09 22:47] VITALS: BP 129/65
--- NOTE | 2020-07-10 03:16 | ECGEPIP ---
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
--- NOTE | 2020-07-10 03:22 | ECGEPIP ---
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
== END 2020-07-09 22:52 ==
LOC: EDBD 08:40 → M ED 08:40
DX: F33.1 Major depressive disorder, recurrent, moderate (principal); T43.592A Poisoning by other antipsychotics and neuroleptics, intentional self-harm, initial encounter; Y92.9 Unspecified place or not applicable; Y93.9 Activity, unspecified; I10 Essential (primary) hypertension; Z87.891 Personal history of nicotine dependence; Z85.3 Personal history of malignant neoplasm of breast; Z79.899 Other long term (current) drug therapy

== ENCOUNTER 2020-09-10 09:46 | Inpatient (IN) | payer BC ==
[~2020-09-10] VITALS: Ht 165.1 cm; Wt 94.7 kg
[2020-09-10] MEDS ORDERED: LATU40TA PO (09:57)
[2020-09-10 10:22] LABS: BASO % 0.4 % (0.0-1.0); EOS # 0.1 10^3/uL (0.0-0.5); EOS % 1.5 % (0.0-3.0); HEMATOCRIT 43.5 % (36.0-47.0); HEMOGLOBIN 14.3 g/dl (12.0-15.5); LYMPH # 1.8 10^3/uL (1.5-5.0); LYMPH % 24.3 % (24.0-44.0); MEAN CORPUSCULAR HEMOGLOBIN 27.9 pg (27.0-33.0); MEAN CORPUSCULAR HGB CONC 32.9 g/dl (32.0-36.5); MEAN CORPUSCULAR VOLUME 84.8 fl (80.0-96.0); MONO # 0.6 10^3/uL (0.0-0.8); MONO % 8.3 % (2.0-8.0); NEUTROPHILS # 4.8 10^3/uL (1.5-8.5); NEUTROPHILS % 65.1 % (36.0-66.0); PLATELET COUNT, AUTOMATED 334 10^3/uL (150-450); RED BLOOD COUNT 5.13 10^6/uL (4.00-5.40); WHITE BLOOD COUNT 7.3 10^3/uL (4.0-10.0)
[2020-09-10] MEDS ORDERED: NS 1,000 ML IV ONE (10:30)
[2020-09-10 10:45] LABS: ACETAMINOPHEN LEVEL < 2.0 UG/ML (10.0-30.0); ALBUMIN 3.5 GM/DL (3.2-5.2); ALT/SGPT 30 U/L (12-78); BILIRUBIN,DIRECT < 0.1 MG/DL (0.0-0.2); BILIRUBIN,TOTAL 0.3 MG/DL (0.2-1.0); BLOOD UREA NITROGEN 20 MG/DL (7-18); CALCIUM LEVEL 8.9 MG/DL (8.5-10.1); CARBON DIOXIDE LEVEL 24 MEQ/L (21-32); CHLORIDE LEVEL 111 MEQ/L (98-107); CPK CREATINE PHOSPHOKINASE 37 U/L (26-192); CREATININE FOR GFR 0.81 MG/DL (0.55-1.30); ETHYL ALCOHOL (ETHANOL) < 0.003 % (0.000-0.010); GLOMERULAR FILTRATION RATE > 60.0 (>58); GLUCOSE, FASTING 97 MG/DL (70-100); POTASSIUM SERUM 4.3 MEQ/L (3.5-5.1); SALICYLATE LEVEL < 1.7 MG/DL (5.0-30.0); SODIUM LEVEL 141 MEQ/L (136-145); TOTAL PROTEIN 6.6 GM/DL (6.4-8.2)
[2020-09-10 11:01] LABS: AMPHETAMINES LEVEL URINE NEGATIVE (NEGATIVE); BARBITURATES URINE NEGATIVE (NEGATIVE); BENZODIAZEPINES URINE POSITIVE (NEGATIVE); CANNABINOIDS URINE POSITIVE (NEGATIVE); COCAINE METABOLITE URINE NEGATIVE (NEGATIVE); METHADONE URINE NEGATIVE (NEGATIVE); OPIATES URINE NEGATIVE (NEGATIVE); PHENCYCLIDINE URINE NEGATIVE (NEGATIVE)
[2020-09-10] MEDS ORDERED: LORazepam 2 MG TAB PO STA ×3 (13:17→16:31)
[2020-09-10] MEDS ORDERED: ACETAMINOPHEN TAB 650MG DOSE (2X325MG) PO PRN (17:20)
[2020-09-10] MEDS ORDERED: VENL75CA47 PO (17:56)
[2020-09-10] MEDS ORDERED: CLOM25CA2 PO (18:02)
--- NOTE | 2020-09-10 18:43 | HPEPDOC ---
[facility] Medical History & Physical Date of Admission September 10, 2020 Date of Service: September 10, 2020 Attending Physician: JUSTEN SCHMIDT MD History and Physical CHIEF COMPLAINT: "Feeling weird" after taking recreational drugs HISTORY OF PRESENT ILLNESS: 45 year old W with severe depression who was just discharged from [facility] after ECT and discharged 2 days ago who activated EMS for tomasa visual and auditory hallucinations after smoking "a bad strain of weed." Pt reports that she had ECT for Severe Treatment Resistant Depression. 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 She otherwise denied SI/HI/AH. She was also found to be anxious, and hypertensive. She is being admitted to medicine for observation. Past Medical History: Depression Breast Cancer (L breast) HTN Cholelithiasis Pyelonephritis Surgical History: Cholecystectomy Lumpectomy (L breast) Family History: Significant Family History: Heart disease (Mother ), Other (Alcoholism - siblings, father. Depression - mother and sisters) Social History Smoker: former Smoker Alcohol: rarely Drugs: marijuana Review of Systems Constitutional: Denies: Chills, Fever, Night Sweats Eyes: Denies: Pain ENT: Denies: Head Aches Skin: Denies: Rash Pulmonary: Denies: Dyspnea, Cough Cardiovascular: Denies: Chest Pain, Palpitations, Lt Headedness Gastrointestinal: Denies: Nausea, Vomiting, Abdominal Pain Genitourinary: Denies: Dysuria, Retention Hematologic: Denies: Bruising Musculoskeletal: Denies: Neck Pain, Back Pain, Joint Pain, Muscle Pain, Spasms Neurological: Denies: Weakness, Numbness Psych: Depressed, feels anxious, no suicidal ideation at this time. Was having visual hallucinations. Physical Examination General: Alert, Cooperative, No Acute Distress Eyes: PERRLA, Conjunctiva & lids normal ENT: Atraumatic, Mucous membr. moist/pink, Pharynx Normal Neck: Supple Chest: Clear to auscultation, Normal air movement Heart: Rate Normal, Normal S1, Normal S2, no m/r/g Abdomen: Normoactive sounds, soft, NTND Extremities: Normal pulses, no edema Skin: Nl turgor and temperature Neuro: Normal Speech, Cranial Nerves 3-12 NL, moving all extremities Psych: Alert and Oriented x 3 Labs and imaging: as summarized above Assessment: 45 year old W with a history of Breast Cancer (L breast), HTN who recently underwent ECT for severe treatment resistant depression who is now being admitted for observation for acute hallucinations and agitation after taking illicit drugs. Depression: - recently underwent ECT, will consult psychiatry Other psych diagnoses: -will continue latuda, propanolol, clonazepam BIDP Breast Cancer (L breast): - pt decided to d/c chemo antineoplastic medication - oncologist aware HTN -resume home propanolol DVT ppx: lovenox SC Vital Signs Vital Signs Date Time Temp Pulse Resp B/P (MAP) Pulse Ox O2 Delivery O2 Flow Rate FiO2 09/10/20 15:46 102 99 09/10/20 15:45 181/91 (121) 09/10/20 13:04 18 09/10/20 10:05 Room Air 09/10/20 09:55 99.1 Laboratory Data Labs 24H Laboratory Tests 2 09/10/20 10:01: Immature Granulocyte % (Auto) 0.4, Neutrophils (%) (Auto) 65.1, Lymphocytes (%) (Auto) 24.3, Monocytes (%) (Auto) 8.3H, Eosinophils (%) (Auto) 1.5, Basophils (%) (Auto) 0.4, Neutrophils # (Auto) 4.8, Lymphocytes # (Auto) 1.8, Monocytes # (Auto) 0.6, Eosinophils # (Auto) 0.1, Basophils # (Auto) 0.0, Nucleated Red Blood Cells % (auto) 0.0, Anion Gap 6L, Glomerular Filtration Rate > 60.0, Calcium Level 8.9, Total Bilirubin 0.3, Direct Bilirubin < 0.1, Aspartate Amino Transf (AST/SGOT) 12, Alanine Aminotransferase (ALT/SGPT) 30, Alkaline Phosphatase 73, Total Creatine Kinase 37, Total Protein 6.6, Albumin 3.5, Albumin/Globulin Ratio 1.1L, Thyroid Stimulating Hormone (TSH) 1.030, Salicylates Level < 1.7L, Acetaminophen Level < 2.0L, Ethyl Alcohol Level < 0.003 09/10/20 10:03: Urine Opiates Screen NEGATIVE, Urine Methadone Screen NEGATIVE, Urine Barbiturates Screen NEGATIVE, Urine Phencyclidine Screen NEGATIVE, Urine Amphetamines Screen NEGATIVE, Urine Benzodiazepines Screen POSITIVEH, Urine Cocaine Metabolite Screen NEGATIVE, Urine Cannabinoids Screen POSITIVEH CBC/BMP Laboratory Tests 09/10/20 10:01 Microbiology Microbiology 09/10/20 Respiratory Virus Panel (PCR) (BUNNY), Received Pending Home Medications Scheduled Clomipramine HCl (Clomipramine HCl) 25 Mg Capsule, 25 MG PO QHS Lurasidone Hydrochloride (Latuda) 40 Mg Tablet, 40 MG PO DAILY Propranolol HCl (Propranolol HCl) 20 Mg Tablet, 20 MG PO BID Venlafaxine HCl (Venlafaxine HCl ER) 75 Mg Cap.er.24h, 225 MG PO DAILY Scheduled PRN Clonazepam (Clonazepam) 2 Mg Tablet, 2 MG PO BID PRN for ANXIETY/AGITATION Allergies Coded Allergies: No Known Drug Allergies (Verified Allergy, Unknown, 04/17/19) A-FIB/CHADSVASC A-FIB History Current/History of A-Fib/PAF?: No Current PO Anticoag Therapy: No Age/Risk Factor Scoring CHADSVASC: CHADSVASC Response (Comments) Value Age Risk Factor Age < 65 years old 0 Gender Risk Factor Female 1 Hx of CHF No 0 Hx of HTN Yes 1 Hx of Stroke/TIA/or VTE No 0 Hx of Diabetes No 0 Hx of Vascular Disease No 0 Total 2 Treatment Treatment ordered: NONE Reason Anticoagulant not given: Not indicated/[id number] JUSTEN SCHMIDT MD September 10, 2020 17:41
[2020-09-10] MEDS: PROPRANOLOL 20 MG TAB PO SCH ×2 (18:49→20:51)
[2020-09-10] MEDS: clonazePAM 1 MG TAB PO PRN (20:51)
[2020-09-10 22:40] VITALS: BP 148/82
--- NOTE | 2020-09-11 02:39 | ECGEPIP ---
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
[2020-09-11] MEDS ORDERED: hydrOXYzine 50 MG TAB PO PRN (04:05)
[2020-09-11 06:00] VITALS: BP 139/67
[2020-09-11 06:51] LABS: HEMATOCRIT 41.4 % (36.0-47.0); HEMOGLOBIN 13.5 g/dl (12.0-15.5); MEAN CORPUSCULAR HEMOGLOBIN 27.7 pg (27.0-33.0); MEAN CORPUSCULAR HGB CONC 32.6 g/dl (32.0-36.5); MEAN CORPUSCULAR VOLUME 84.8 fl (80.0-96.0); PLATELET COUNT, AUTOMATED 308 10^3/uL (150-450); RED BLOOD COUNT 4.88 10^6/uL (4.00-5.40); WHITE BLOOD COUNT 6.5 10^3/uL (4.0-10.0)
[2020-09-11 07:07] LABS: BLOOD UREA NITROGEN 10 MG/DL (7-18); CALCIUM LEVEL 9.1 MG/DL (8.5-10.1); CARBON DIOXIDE LEVEL 24 MEQ/L (21-32); CHLORIDE LEVEL 112 MEQ/L (98-107); CREATININE FOR GFR 0.62 MG/DL (0.55-1.30); GLOMERULAR FILTRATION RATE > 60.0 (>58); GLUCOSE, FASTING 81 MG/DL (70-100); MAGNESIUM LEVEL 2.3 MG/DL (1.8-2.4); SODIUM LEVEL 141 MEQ/L (136-145)
[2020-09-11] MEDS ORDERED: LURASIDONE HCL 40 MG TAB (LATUDA) PO SCH (09:00)
[2020-09-11] MEDS ORDERED: VENLAFAXINE **XR** 75MG CAPSULE PO SCH (09:00)
[2020-09-11] MEDS ORDERED: ENOXAPARIN 40MG/0.4ML SYRINGE (J1650 PER 10MG) SC SCH (09:00)
[2020-09-11] MEDS: clonazePAM 1 MG TAB PO PRN (10:27)
[2020-09-11 11:19] VITALS: BP 150/90
[2020-09-11] MEDS: PROPRANOLOL 20 MG TAB PO SCH (11:19)
--- NOTE | 2020-09-11 11:56 | IPNPDOC ---
Text Note Date of Service The patient was seen on 09/11/20. NOTE Subjective: No acute events overnight Objective: General: Alert, Cooperative, No Acute Distress Eyes: PERRLA, Conjunctiva & lids normal ENT: Atraumatic, Mucous membr. moist/pink, Pharynx Normal Neck: Supple Chest: Clear to auscultation, Normal air movement Heart: Rate Normal, Normal S1, Normal S2, no m/r/g Abdomen: Normoactive sounds, soft, NTND Extremities: Normal pulses, no edema Skin: Nl turgor and temperature Neuro: Normal Speech, Cranial Nerves 3-12 NL, moving all extremities Psych: Alert and Oriented x 3 Labs: Reviewed. Grossly wnl CBC and BMP Assessment: 45 year old W with a history of Breast Cancer (L breast), HTN who recently underwent ECT for severe treatment resistant depression who is now being admitted for observation for acute hallucinations and agitation after taking illicit drugs. Hallucination and agitation 2/2 illicit drugs: -Resolved Depression: - recently underwent ECT, will consult psychiatry Other psych diagnoses: -will continue latuda, propanolol, clonazepam BIDP Breast Cancer (L breast): - pt decided to d/c hormonal therapy - oncologist aware HTN -continue home propanolol DVT ppx: lovenox SC VS,Fishbone, I+O VS, Fishbone, I+O Laboratory Tests 09/10/20 10:01 09/11/20 06:15 Vital Signs Date Time Temp Pulse Resp B/P (MAP) Pulse Ox O2 Delivery O2 Flow Rate FiO2 09/11/20 06:00 98.7 73 18 139/67 (91) 96 Room Air I&O- Last 24 Hours up to 6 AM 09/11/20 06:00 Intake Total 180 ml Output Total 500 ml Balance -320 ml JUSTEN SCHMIDT MD September 11, 2020 08:19
--- NOTE | 2020-09-11 12:36 | MHIPNPDOC ---
[facility] Progress Note Progress Note DATE OF SERVICE: 09/11/20 HISTORY: As per previous history: "45 year old W with severe depression who was just discharged from [facility] after ECT and discharged 2 days ago who activated EMS for tomasa visual and auditory hallucinations after smoking "a bad strain of weed." Pt reports that she had ECT for Severe Treatment Resistant Depression. 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 She otherwise denied SI/HI/AH. She was also found to be anxious, and hypertensive. She is being admitted to medicine for observation." VITAL SIGNS: See below. NEW TEST RESULTS: See below CURRENT MEDICATIONS: See below. MENTAL STATUS EXAMINATION: Patient is a 45-year old female, who is alert, cooperative, dressed in hospital gown, laying on her hospital bed. She has good eye contact and good hygiene Speech: normal r/t/v Language skills are Intact Thought processes including: linear and coherent. Thought content: negative for SI/HI or thought delusions, negative for depressive thoughts, positive for anxious thoughts. Description of associations: intact Description of abnormal or psychotic thoughts: denies TAV hallucinations, denies thought delusions, denies SI/HI. Judgment: fair. Insight: fair. Orientation: x 3. Recent and remote memory: good. Attention span and concentration: good. Language: adequate. Fund of knowledge: average. Mood: anxious. Affect: congruent with mood. DIAGNOSES: 1. 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 Generalized anxiety disorder. 3. H/O substance induced psychotic disorder ( resolved) 4. Recent marijuana use/abuse. ASSESSMENT: the patient says she has always been anxious and she has treatment resistant depressive disorder. she has been receiving ECT's and apparently she is having a good response because she says her depression level is a 2/10 at this time but she rates her anxiety level at a 7/10. she denies ah/o panic attacks and she says she has not experienced them recently. she thinks the anxiety she is experiencing now is secondary to her recent marijuana use, which she says, has been the second time in her life she's used and she is very sorry for doing this because it caused her a psychotic episode. the psychosis is resolved, she is not suicidal, not homicidal, she is not a danger to self or others. she is future orientated, she has family support. her sister is coming from [place] and she is going to stay with her mother. they will be together because there's a wedding in the family. she has CFS, she knows she has to come to the ED if she feels she can't handle her anxiety anymore or if she becomes suicidal. She says she thinks she can handle, she practices breathing exercises and relaxation to control her anxiety. She thinks she has an appointment on Tuesday with her Doctor in [place]. She says she knows she has her medications at the pharmacy but she is not sure the Klonopin was called in. I have contacted Dr. Rosado to let her know the patient doesn't need to go [facility] and asked her to confirm if patient has enough clonazepam. MANAGEMENT PLAN: As above TIME SPENT: 15 minutes. Vital Signs Vital Signs Date Time Temp Pulse Resp B/P (MAP) Pulse Ox O2 Delivery O2 Flow Rate FiO2 09/11/20 11:19 85 150/90 09/11/20 06:00 98.7 18 96 Room Air Laboratory Data 24H Labs Laboratory Tests 2 09/11/20 06:15: Nucleated Red Blood Cells % (auto) 0.0, Anion Gap 5L, Glomerular Filtration Rate > 60.0, Calcium Level 9.1, Magnesium Level 2.3 CBC/BMP Laboratory Tests 09/11/20 06:15 Current Medications Current Medications Medications (Trade) Dose Ordered Sig/[place] Route PRN Reason Start Time Stop Time Status Last Admin Dose Admin Acetaminophen (Tylenol Tab) 650 mg Q4H PRN PO PAIN OR FEVER 09/10/20 17:20 Clonazepam (KlonoPIN) 2 mg BIDP PRN PO ANXIETY/AGITATION 09/10/20 17:45 09/11/20 10:27 Enoxaparin Sodium (Lovenox) 40 mg DAILY SC 09/11/20 09:00 09/11/20 10:28 Home Med (Med Rec Complete!) ASDIRECTED XX 09/10/20 18:05 09/10/20 18:08 DC Hydroxyzine HCl (Atarax) 50 mg Q6HP PRN PO anxiety 09/11/20 04:05 09/11/20 04:23 Lorazepam (Ativan) 2 mg STAT STAT PO 09/10/20 13:17 09/10/20 13:18 DC 09/10/20 13:43 Lorazepam (Ativan) 2 mg STAT STAT PO 09/10/20 14:16 09/10/20 14:17 DC 09/10/20 14:23 Lorazepam (Ativan) 2 mg STAT STAT PO 09/10/20 16:31 09/10/20 16:35 DC 09/10/20 16:37 Lurasidone HCl (Latuda) 40 mg DAILY PO 09/11/20 09:00 09/11/20 10:27 Propranolol HCl (Inderal) 20 mg BID PO 09/10/20 17:45 09/11/20 11:19 Venlafaxine HCl (Effexor Xr) 225 mg DAILY PO 09/11/20 09:00 09/11/20 10:27 Allergies Coded Allergies: No Known Drug Allergies (Verified Allergy, Unknown, 04/17/19) JASMINE PERALTA MD September 11, 2020 12:36
--- NOTE | 2020-09-11 12:43 | DS.PDOC ---
Discharge Summary General Date of Admission September 10, 2020 at 17:20 Date of Discharge 09/11/2020 Attending Physician: JUSTEN SCHMIDT MD Discharge Summary PROCEDURES PERFORMED DURING STAY:None ADMITTING DIAGNOSES: Illicit drug induced encephalopathy DISCHARGE DIAGNOSES: Illicit drug induced encephalopathy Depression History of Breast Cancer (L breast) HTN COMPLICATIONS/CHIEF COMPLAINT: Depression,Illicit Drug Use. HISTORY OF PRESENT ILLNESS: 45 year old W with severe depression who was just discharged from [facility] in [place] after ECT 2 days prior to presentation who activated EMS for tomasa visual and auditory hallucinations after smoking "a bad strain of weed." Pt reported that she had ECT for Severe Treatment Resistant Depression. 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 She otherwise denied SI/HI/AH. HOSPITAL COURSE: In the ED, she was found to be anxious, and hypertensive and was given ativan for agitation. She was admitted to medicine for observation where she was continued on her home meds and her agitation and hallucinations resolved. On day 2 psychiatry was consulted and she was deemed safe for home discharge with outpatient follow up. DISCHARGE MEDICATIONS: Please see below. ALLERGIES: Please see below. PHYSICAL EXAMINATION ON DISCHARGE: VITAL SIGNS: Please see below. General: Alert, Cooperative, No Acute Distress Eyes: PERRLA, Conjunctiva & lids normal ENT: Atraumatic, Mucous membr. moist/pink, Pharynx Normal Neck: Supple Chest: Clear to auscultation, Normal air movement Heart: Rate Normal, Normal S1, Normal S2, no m/r/g Abdomen: Normoactive sounds, soft, NTND Extremities: Normal pulses, no edema Skin: Nl turgor and temperature Neuro: Normal Speech, Cranial Nerves 3-12 NL, moving all extremities Psych: Alert and Oriented x 3 LABORATORY DATA: Please see below. IMAGING: None PROGNOSIS: Good ACTIVITY: As tolerated DIET: 2g sodium DISCHARGE PLAN: Home with PCP and psychiatry follow up DISPOSITION: home DISCHARGE INSTRUCTIONS: Home with PCP and psychiatry follow up. Urged to refrain from illicit drug use ITEMS TO FOLLOWUP ON ON OUTPATIENT: Depression DISCHARGE CONDITION: Stable TIME SPENT ON DISCHARGE: 32 minutes. Vital Signs/I&Os Vital Signs Date Time Temp Pulse Resp B/P (MAP) Pulse Ox O2 Delivery O2 Flow Rate FiO2 09/11/20 11:19 85 150/90 09/11/20 06:00 98.7 18 96 Room Air I&O- Last 24 Hours up to 6 AM 09/11/20 06:00 Intake Total 180 ml Output Total 500 ml Balance -320 ml Laboratory Data Labs 24H Laboratory Tests 2 09/11/20 06:15: Nucleated Red Blood Cells % (auto) 0.0, Anion Gap 5L, Glomerular Filtration Rate > 60.0, Calcium Level 9.1, Magnesium Level 2.3 CBC/BMP Laboratory Tests 09/11/20 06:15 Microbiology Microbiology 09/10/20 Respiratory Virus Panel (PCR) (BUNNY) - Final, Complete Discharge Medications Scheduled Clomipramine HCl (Clomipramine HCl) 25 Mg Capsule, 25 MG PO QHS, (Reported) Lurasidone Hydrochloride (Latuda) 40 Mg Tablet, 40 MG PO DAILY, (Reported) Propranolol HCl (Propranolol HCl) 20 Mg Tablet, 20 MG PO BID, (Reported) Venlafaxine HCl (Venlafaxine HCl ER) 75 Mg Cap.er.24h, 225 MG PO DAILY, (Reported) Scheduled PRN Clonazepam (Clonazepam) 2 Mg Tablet, 2 MG PO BID PRN for ANXIETY/AGITATION, (Reported) Allergies Coded Allergies: No Known Drug Allergies (Verified Allergy, Unknown, 04/17/19) JUSTEN SCHMIDT MD September 11, 2020 12:42
== END 2020-09-11 15:55 | disposition home or self-care (01) | DRG 776 ==
LOC: M ED 09:46 → M ED INP 17:20 → ENRESERV 22:19 → M MSPAV 23:00
PROVIDERS: ADMIT Internal Medicine; ATTEND Internal Medicine
DX: F12.151 Cannabis abuse with psychotic disorder with hallucinations (principal); G92 Toxic encephalopathy; F33.1 Major depressive disorder, recurrent, moderate; T40.7X5A Adverse effect of cannabis (derivatives), initial encounter; I10 Essential (primary) hypertension; Z85.3 Personal history of malignant neoplasm of breast; Z79.899 Other long term (current) drug therapy; F41.1 Generalized anxiety disorder

== ENCOUNTER → 2020-12-03 | Outpatient (REF) | payer BC ==
[~2020-12-03] MED LIST changes: +CLOM25CA2 PO; +LATU40TA PO; +VENL75CA47 PO
[2020-12-04 12:41] LABS: GC DNA AMPLIFICATION NEGATIVE (NEGATIVE)
== END ==
LOC: M SFHCWAGY 10:09
PROVIDERS: ATTEND Nurse Practitioner Women's Health
DX: Z11.3 Encounter for screening for infections with a predominantly sexual mode of transmission (principal)

== ENCOUNTER → 2020-12-16 | Outpatient (REF) | LOC: M EMP 09:39 | PROVIDERS: ATTEND Family Medicine | DX: Z20.828 Contact with and (suspected) exposure to other viral communicable diseases (principal) ==

== ENCOUNTER 2021-01-01 13:51 | Inpatient (IN) | payer BC ==
[~2021-01-01] VITALS: Ht 165.1 cm; Wt 95.9 kg
[2021-01-01] MEDS ORDERED: VENL150C43 PO (14:17)
[2021-01-01] MEDS ORDERED: QUET50TA4 PO (14:17)
[2021-01-01] MEDS ORDERED: ALPR1TAB3 PO (14:17)
[2021-01-01 15:39] LABS: HEMATOCRIT 44.9 % (36.0-47.0); HEMOGLOBIN 14.6 g/dl (12.0-15.5); MEAN CORPUSCULAR HEMOGLOBIN 27.7 pg (27.0-33.0); MEAN CORPUSCULAR HGB CONC 32.5 g/dl (32.0-36.5); PLATELET COUNT, AUTOMATED 335 10^3/uL (150-450); RED BLOOD COUNT 5.28 10^6/uL (4.00-5.40); WHITE BLOOD COUNT 10.2 10^3/uL (4.0-10.0)
[2021-01-01 15:54] LABS: AMPHETAMINES LEVEL URINE NEGATIVE (NEGATIVE); BARBITURATES URINE NEGATIVE (NEGATIVE); BENZODIAZEPINES URINE POSITIVE (NEGATIVE); CANNABINOIDS URINE NEGATIVE (NEGATIVE); COCAINE METABOLITE URINE NEGATIVE (NEGATIVE); METHADONE URINE NEGATIVE (NEGATIVE); OPIATES URINE NEGATIVE (NEGATIVE); PHENCYCLIDINE URINE NEGATIVE (NEGATIVE)
[2021-01-01 15:58] LABS: HCG, SERUM QUALITATIVE NEGATIVE (NEGATIVE)
[2021-01-01 16:03] LABS: ACETAMINOPHEN LEVEL < 2.0 UG/ML (10.0-30.0); ALBUMIN 3.4 GM/DL (3.2-5.2); ALT/SGPT 23 U/L (12-78); BILIRUBIN,DIRECT < 0.1 MG/DL (0.0-0.2); BILIRUBIN,TOTAL 0.2 MG/DL (0.2-1.0); BLOOD UREA NITROGEN 11 MG/DL (7-18); CALCIUM LEVEL 8.7 MG/DL (8.5-10.1); CARBON DIOXIDE LEVEL 25 MEQ/L (21-32); CHLORIDE LEVEL 109 MEQ/L (98-107); ETHYL ALCOHOL (ETHANOL) 0.036 % (0.000-0.010); GLOMERULAR FILTRATION RATE > 60.0 (>58); GLUCOSE, FASTING 89 MG/DL (70-100); POTASSIUM SERUM 3.9 MEQ/L (3.5-5.1); SODIUM LEVEL 141 MEQ/L (136-145); TOTAL PROTEIN 6.5 GM/DL (6.4-8.2)
--- NOTE | 2021-01-01 17:54 | MHIPNPDOC ---
[facility] Progress Note Progress Note DATE OF SERVICE: 01/01/21 Communicated with JAKI patient meets criteria for admission due to parasuicidal behavior including taking benzodiazepines with alcohol, reporting no concern if she falls asleep and doesn't wake up. Per pSA has recently been to [facility] for ECT which was reported to be ineffective and reports worsening anxiety which interferes with sleep and work. Patient reportedly willing to sign voluntary paperwork fro admission, as she is seeking help for her psychiatric symptoms. Vital Signs Vital Signs Date Time Temp Pulse Resp B/P (MAP) Pulse Ox O2 Delivery O2 Flow Rate FiO2 01/01/21 13:51 98.5 71 18 138/88 (105) 100 Room Air Laboratory Data 24H Labs Laboratory Tests 2 01/01/21 15:16: Nucleated Red Blood Cells % (auto) 0.0, Anion Gap 7L, Glomerular Filtration Rate > 60.0, Calcium Level 8.7, Total Bilirubin 0.2, Direct Bilirubin < 0.1, Aspartate Amino Transf (AST/SGOT) 8, Alanine Aminotransferase (ALT/SGPT) 23, Alkaline Phosphatase 81, Total Protein 6.5, Albumin 3.4, Albumin/Globulin Ratio 1.1L, Thyroid Stimulating Hormone (TSH) 1.320, Human Chorionic Gonadotropin, Qual NEGATIVE, Salicylates Level 3.0L, Urine Opiates Screen NEGATIVE, Urine Methadone Screen NEGATIVE, Acetaminophen Level < 2.0L, Urine Barbiturates Screen NEGATIVE, Urine Phencyclidine Screen NEGATIVE, Urine Amphetamines Screen NEGATIVE, Urine Benzodiazepines Screen POSITIVEH, Urine Cocaine Metabolite Screen NEGATIVE, Urine Cannabinoids Screen NEGATIVE, Ethyl Alcohol Level 0.036H CBC/BMP Laboratory Tests 01/01/21 15:16 Allergies Coded Allergies: No Known Drug Allergies (Verified Allergy, Unknown, 04/17/19) MAKAYLA RAUSCH MD Jan 01, 2021 17:54
[2021-01-01] MEDS ORDERED: LORazepam 2 MG TAB PO STA (18:01)
[2021-01-01] MEDS ORDERED: HOME MED LIST COMPLETE! XX SCH (18:10)
[2021-01-01] MEDS ORDERED: ACETAMINOPHEN TAB 650MG DOSE (2X325MG) PO PRN (18:25)
[2021-01-01] MEDS ORDERED: MAALOX 30 ML SUSP *UDC PO PRN (18:25)
[2021-01-01] MEDS ORDERED: MOM 30ML SUSPENSION UDC PO PRN (18:25)
[2021-01-01 19:12] LABS: RSV AMPLIFICATION NEGATIVE (NEGATIVE)
[2021-01-01 20:58] VITALS: BP 139/84
[2021-01-01] MEDS ORDERED: QUEtiapine FUMARATE 50MG TAB PO SCH (21:00)
[2021-01-01] MEDS: ALPRAZolam 0.5 MG TAB PO SCH (22:10)
[2021-01-01] MEDS: THIAMINE 100 MG TAB PO SCH (22:11)
[2021-01-01 22:30] VITALS: BP 139/84
[2021-01-02 07:40] VITALS: BP 147/64
[2021-01-02] MEDS: THIAMINE 100 MG TAB PO SCH ×2 (08:58→21:16)
[2021-01-02] MEDS: FOLIC ACID 1 MG TAB PO SCH (08:58)
[2021-01-02] MEDS: ALPRAZolam 0.5 MG TAB PO SCH ×2 (08:58→21:16)
[2021-01-02] MEDS: MULTIVITAMINS/MINERALS THERAP 1 TAB PO SCH (08:58)
[2021-01-02] MEDS ORDERED: VENLAFAXINE **XR** 75MG CAPSULE PO SCH (09:00)
[2021-01-02] MEDS ORDERED: INFLUENZA QUADRIVALENT PF VACCINE 0.5ML SYRINGE IM ONE (09:00)
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
[2021-01-02] MEDS: OLANZapine 2.5MG TABLET PO SCH ×2 (13:44→21:16)
--- NOTE | 2021-01-02 13:56 | HPEPDOC ---
[facility] Medical History & Physical Date of Admission Jan 02, 2021 Date of Service: Jan 02, 2021 Other Provider Du Alvarez DO, hospitalist Attending Physician: MAKAYLA RAUSCH MD History and Physical CHIEF COMPLAINT: Anxiety HISTORY OF PRESENT ILLNESS: Patient is a 45-year-old female who presents to the inpatient mental health unit secondary to anxiety. Patient states for the last 2 weeks she has been struggling with her anxiety the point where she is unable to work. Patient reported the hospital as she has been self-medicating with alcohol and Xanax that she is prescribed. Patient states that she has been drinking about 6 alcoholic drinks per day for the past 2 weeks. Patient denies any current suicidal ideations. Please see psychiatric history and physical exam for further details. PAST MEDICAL HISTORY: 1. Anxiety. 2. Breast cancer 3. Hypertension PAST SURGICAL HISTORY: 1. Cholecystectomy. 2. Left-sided breast lumpectomy. SOCIAL HISTORY: Patient recently started smoking about 1/2 pack of cigarettes. Patient drinks about 6 drinks alcohol a day for the last 2 weeks and denies any illicit drug use at this time. FAMILY HISTORY: According to the patient's chart, mother had heart disease and father had alcoholism ALLERGIES: Please see below. REVIEW OF SYSTEMS: General: Patient denies fevers HEENT: Patient denies headaches Cardiovascular: Patient denies chest pain Respiratory: Patient denies shortness of breath, cough GI: Patient denies abdominal pain, nausea, vomiting, diarrhea : Patient denies increased frequency or pain with urination Extremities: Patient denies swelling or pain in extremities Neurological: Patient denies numbness or tingling in legs Skin: Patient denies any new rashes or lesions. Hematologic: Patient denies any easy bruising. Lymphatic: Patient denies any lumps lumps or bumps in neck, axilla, or groin HOME MEDICATIONS: Please see below. PHYSICAL EXAMINATION: VITAL SIGNS: Temperature 97.7, pulse 68, respiratory rate 16, blood pressure 147/64, pulse oximetry 97% on room air. General: Alert and oriented female who was in her room I walked down to the unit. Patient was able to walk from her room to the examination room without any difficulty. Patient did not appear to be in any acute distress. HEENT: Normocephalic, atraumatic, moist mucous membranes. Neck: No lymphadenopathy or thyromegaly Cardiac: Regular rate and rhythm, no murmurs, normal S1, normal S2 Pulm: Clear to auscultation bilaterally. No wheezes, rhonchi, rales Abd: Nondistended, nontender to palpation, normal bowel sounds Ext: No edema bilateral lower extremities Neuro: Patient was able to move all 4 extremities on command and reported equal sensation light touch in all 4 extremities. Skin: Skin of the head, neck, upper and lower extremities was examined did not show any evidence of rash or wounds. LABORATORY DATA: See below. IMAGING: No imaging has been performed MICROBIOLOGY: Please see below. ASSESSMENT: 45-year-old female who is currently admitted into the inpatient mental health unit for further treatment of her anxiety. . PLAN: 1. Anxiety. Treatment per psychiatry. 2. Hypertension. At the patient's blood pressures remain elevated, patient can be started on 5 mg of amlodipine. Patient does take propanolol for her anxiety and this can also lower her blood pressure so this can be monitored closely. Disposition: Patient will be discharged per psychiatry. Please reconsult hospitalist if the need arises. Thank you for this consult. Vital Signs Vital Signs Date Time Temp Pulse Resp B/P (MAP) Pulse Ox O2 Delivery O2 Flow Rate FiO2 01/02/21 07:40 97.7 68 16 147/64 (91) 97 Room Air Laboratory Data Labs 24H Laboratory Tests 2 01/01/21 15:16: Nucleated Red Blood Cells % (auto) 0.0, Anion Gap 7L, Glomerular Filtration Rate > 60.0, Calcium Level 8.7, Total Bilirubin 0.2, Direct Bilirubin < 0.1, Aspartate Amino Transf (AST/SGOT) 8, Alanine Aminotransferase (ALT/SGPT) 23, Alkaline Phosphatase 81, Total Protein 6.5, Albumin 3.4, Albumin/Globulin Ratio 1.1L, Thyroid Stimulating Hormone (TSH) 1.320, Human Chorionic Gonadotropin, Qual NEGATIVE, Salicylates Level 3.0L, Urine Opiates Screen NEGATIVE, Urine Methadone Screen NEGATIVE, Acetaminophen Level < 2.0L, Urine Barbiturates Screen NEGATIVE, Urine Phencyclidine Screen NEGATIVE, Urine Amphetamines Screen NEGATIVE, Urine Benzodiazepines Screen POSITIVEH, Urine Cocaine Metabolite Screen NEGATIVE, Urine Cannabinoids Screen NEGATIVE, Ethyl Alcohol Level 0.036H 01/01/21 18:10: Coronavirus (COVID-19)(PCR) NEGATIVE, Influenza Type A (RT-PCR) NEGATIVE, Influenza Type B (RT-PCR) NEGATIVE, Respiratory Syncytial Virus (PCR) NEGATIVE 01/02/21 10:53: Estimated Mean Plasma Glucose 97, Hemoglobin A1c 5.0 CBC/BMP Laboratory Tests 01/01/21 15:16 Home Medications Scheduled Alprazolam (Alprazolam) 1 Mg Tablet, 1 MG PO TID Quetiapine Fumarate (Quetiapine Fumarate) 50 Mg Tablet, 50 MG PO QHS Venlafaxine HCl (Venlafaxine HCl ER) 150 Mg Cap.er.24h, 300 MG PO DAILY Scheduled PRN Propranolol HCl (Propranolol HCl) 20 Mg Tablet, 20 MG PO BID PRN for ANXIETY Allergies Coded Allergies: No Known Drug Allergies (Verified Allergy, Unknown, 04/17/19) A-FIB/CHADSVASC A-FIB History Current/History of A-Fib/PAF?: No Age/Risk Factor Scoring CHADSVASC: CHADSVASC Response (Comments) Value Age Risk Factor Age < 65 years old 0 Gender Risk Factor Female 1 Hx of CHF No 0 Hx of HTN No 0 Hx of Stroke/TIA/or VTE No 0 Hx of Diabetes No 0 Hx of Vascular Disease No 0 Total 1 DU ALVAREZ DO Jan 02, 2021 13:56
[2021-01-02] MEDS: amLODIPine 5 MG TAB PO SCH (15:10)
[2021-01-02 16:04] VITALS: BP 140/82
[2021-01-02 16:18] VITALS: BP 140/82
[2021-01-02] MEDS ORDERED: OLANZapine 2.5MG TABLET PO SCH (21:00)
[2021-01-03 06:12] VITALS: BP 154/78
[2021-01-03 07:36] LABS: CHOLESTEROL RISK RATIO 3.576 (<5)
[2021-01-03] MEDS: MULTIVITAMINS/MINERALS THERAP 1 TAB PO SCH (08:27)
[2021-01-03] MEDS: OLANZapine 2.5MG TABLET PO SCH (08:28)
[2021-01-03] MEDS: THIAMINE 100 MG TAB PO SCH ×2 (08:28→20:49)
[2021-01-03] MEDS: FOLIC ACID 1 MG TAB PO SCH (08:28)
[2021-01-03] MEDS: VENLAFAXINE **XR** 75MG CAPSULE PO SCH (08:29)
[2021-01-03] MEDS: ALPRAZolam 0.5 MG TAB PO SCH ×2 (08:29→20:49)
[2021-01-03] MEDS: amLODIPine 5 MG TAB PO SCH (08:30)
[2021-01-03] MEDS: PROPRANOLOL 20 MG TAB PO PRN ×2 (08:32→16:23)
[2021-01-03 09:09] VITALS: BP 154/78
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
[2021-01-03 16:04] VITALS: BP 150/96
[2021-01-03 17:13] VITALS: BP 150/96
[2021-01-03] MEDS: LORazepam 2 MG TAB PO PRN (17:19)
[2021-01-03 19:25] VITALS: BP 125/71
[2021-01-03] MEDS: OLANZapine 5 MG TAB PO SCH (20:49)
[2021-01-03] MEDS: traZODone 50 MG TAB PO PRN (20:49)
[2021-01-03 21:00] VITALS: BP 121/72
[2021-01-04 06:11] VITALS: BP 152/70
[2021-01-04 07:57] VITALS: BP 138/88
[2021-01-04] MEDS: OLANZapine 2.5MG TABLET PO SCH (08:11)
[2021-01-04] MEDS: THIAMINE 100 MG TAB PO SCH (08:11)
[2021-01-04] MEDS: VENLAFAXINE **XR** 75MG CAPSULE PO SCH (08:11)
[2021-01-04] MEDS: FOLIC ACID 1 MG TAB PO SCH (08:11)
[2021-01-04] MEDS: LORazepam 2 MG TAB PO PRN (08:11)
[2021-01-04] MEDS: MULTIVITAMINS/MINERALS THERAP 1 TAB PO SCH (08:12)
[2021-01-04] MEDS: amLODIPine 5 MG TAB PO SCH (08:12)
[2021-01-04] MEDS: ALPRAZolam 0.5 MG TAB PO SCH ×2 (09:49→20:13)
[2021-01-04] MEDS ORDERED: VENLAFAXINE **XR** 75MG CAPSULE PO ONE (10:30)
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
[2021-01-04 10:44] VITALS: BP 132/84
[2021-01-04 14:58] VITALS: BP 122/83
[2021-01-04 16:37] VITALS: BP 122/83
[2021-01-04] MEDS: PROPRANOLOL 20 MG TAB PO PRN (16:55)
[2021-01-04] MEDS: traZODone 50 MG TAB PO PRN (20:13)
[2021-01-04] MEDS: OLANZapine 5 MG TAB PO SCH (20:13)
[2021-01-05 06:19] VITALS: BP 152/95
[2021-01-05] MEDS: amLODIPine 5 MG TAB PO SCH (09:15)
[2021-01-05] MEDS: OLANZapine 2.5MG TABLET PO SCH (09:15)
[2021-01-05] MEDS: ALPRAZolam 0.5 MG TAB PO SCH ×2 (09:16→21:53)
[2021-01-05] MEDS: MULTIVITAMINS/MINERALS THERAP 1 TAB PO SCH (09:17)
[2021-01-05] MEDS: VENLAFAXINE **XR** 75MG CAPSULE PO SCH (09:17)
[2021-01-05] MEDS: FOLIC ACID 1 MG TAB PO SCH (09:17)
[2021-01-05] MEDS: PROPRANOLOL 20 MG TAB PO PRN (09:18)
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
[2021-01-05] MEDS: GABAPENTIN 300 MG CAP PO SCH ×3 (11:24→21:53)
[2021-01-05 17:10] VITALS: BP 140/80
[2021-01-05 17:28] VITALS: BP 140/80
[2021-01-05] MEDS: OLANZapine 5 MG TAB PO SCH (21:53)
[2021-01-06 06:47] VITALS: BP 144/69
[2021-01-06 06:55] VITALS: BP 144/69
[2021-01-06] MEDS: GABAPENTIN 300 MG CAP PO SCH ×3 (09:26→20:53)
[2021-01-06] MEDS: amLODIPine 5 MG TAB PO SCH (09:26)
[2021-01-06] MEDS: OLANZapine 2.5MG TABLET PO SCH (09:26)
[2021-01-06] MEDS: VENLAFAXINE **XR** 75MG CAPSULE PO SCH (09:26)
[2021-01-06] MEDS: MULTIVITAMINS/MINERALS THERAP 1 TAB PO SCH (09:26)
[2021-01-06] MEDS: FOLIC ACID 1 MG TAB PO SCH (09:27)
[2021-01-06] MEDS: ALPRAZolam 0.5 MG TAB PO SCH ×2 (09:27→20:53)
[2021-01-06] MEDS: PROPRANOLOL 20 MG TAB PO PRN (09:27)
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
[2021-01-06 17:59] VITALS: BP 136/83
[2021-01-06] MEDS: OLANZapine 5 MG TAB PO SCH (20:53)
[2021-01-07 06:39] VITALS: BP 128/92
[2021-01-07] MEDS: GABAPENTIN 300 MG CAP PO SCH ×3 (08:11→20:15)
[2021-01-07] MEDS: VENLAFAXINE **XR** 75MG CAPSULE PO SCH (08:11)
[2021-01-07] MEDS: amLODIPine 5 MG TAB PO SCH (08:11)
[2021-01-07] MEDS: ALPRAZolam 0.5 MG TAB PO SCH (08:11)
[2021-01-07] MEDS: OLANZapine 2.5MG TABLET PO SCH (08:12)
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
[2021-01-07] MEDS: OLANZapine 5 MG TAB PO SCH (20:15)
[2021-01-07] MEDS: PROPRANOLOL 20 MG TAB PO PRN (20:15)
[2021-01-07] MEDS: traZODone 50 MG TAB PO PRN (21:18)
[2021-01-08 06:10] VITALS: BP 163/90
[2021-01-08] MEDS: GABAPENTIN 300 MG CAP PO SCH ×3 (08:23→21:18)
[2021-01-08] MEDS: VENLAFAXINE **XR** 75MG CAPSULE PO SCH (08:23)
[2021-01-08] MEDS: amLODIPine 5 MG TAB PO SCH (08:24)
[2021-01-08] MEDS: OLANZapine 2.5MG TABLET PO SCH (08:24)
[2021-01-08] MEDS: PROPRANOLOL 20 MG TAB PO PRN ×2 (08:24→21:35)
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
[2021-01-08 17:39] VITALS: BP 152/96
[2021-01-08] MEDS: traZODone 50 MG TAB PO PRN (21:18)
[2021-01-08] MEDS: OLANZapine 5 MG TAB PO SCH (21:18)
[2021-01-09 06:34] VITALS: BP 142/94
[2021-01-09] MEDS ORDERED: OLAN1TAB16 PO (08:08)
[2021-01-09] MEDS ORDERED: AMLO1TAB24 PO (08:08)
[2021-01-09] MEDS ORDERED: OLAN2.5T25 PO (08:08)
[2021-01-09] MEDS ORDERED: GABA-282 PO (08:08)
[2021-01-09] MEDS: amLODIPine 5 MG TAB PO SCH (08:18)
[2021-01-09] MEDS: VENLAFAXINE **XR** 75MG CAPSULE PO SCH (08:20)
[2021-01-09] MEDS: GABAPENTIN 300 MG CAP PO SCH (08:20)
[2021-01-09 08:21] VITALS: BP 142/94
[2021-01-09] MEDS: PROPRANOLOL 20 MG TAB PO PRN (08:21)
[2021-01-09] MEDS: OLANZapine 2.5MG TABLET PO SCH (08:22)
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
== END 2021-01-09 11:45 | disposition home or self-care (01) | DRG 756 ==
LOC: M ED 13:51 → M ED INP 18:25 → M PSY 20:35
PROVIDERS: ADMIT Student in an Organized Health Care Education/Training Program; ATTEND Psychiatry & Neurology Child & Adolescent Psychiatry
DX: F41.1 Generalized anxiety disorder (principal); F33.1 Major depressive disorder, recurrent, moderate; Z91.5 Personal history of self-harm; G47.33 Obstructive sleep apnea (adult) (pediatric); Z85.3 Personal history of malignant neoplasm of breast; Z92.3 Personal history of irradiation; Z92.21 Personal history of antineoplastic chemotherapy; Z62.811 Personal history of psychological abuse in childhood; F41.0 Panic disorder [episodic paroxysmal anxiety]; Z20.822 Contact with and (suspected) exposure to COVID-19; F17.210 Nicotine dependence, cigarettes, uncomplicated; F10.10 Alcohol abuse, uncomplicated; F13.130 Sedative, hypnotic or anxiolytic abuse with withdrawal, uncomplicated; Z79.899 Other long term (current) drug therapy; I10 Essential (primary) hypertension; Z90.49 Acquired absence of other specified parts of digestive tract

== ENCOUNTER 2022-01-08 08:57 | Emergency (ER) | payer BC ==
[~2022-01-08] VITALS: Ht 165.1 cm; Wt 105.1 kg
[~2022-01-08 08:57] MED LIST changes: +ALPR1TAB3 PO; +AMLO1TAB24 PO; -FLUO10CA16 PO; +FLUO10CA18 PO; +GABA-282 PO; -LATU40TA PO; +LATU40TA2 PO; +OLAN1TAB16 PO; +OLAN2.5T25 PO; +QUET50TA4 PO
[2022-01-08] MEDS ORDERED: METOCLOPRAMIDE INJ 10MG/2ML VIAL (J2765 PER 1) IV ONE (09:40)
[2022-01-08] MEDS ORDERED: LAMO25TA4 (09:42)
[2022-01-08] MEDS ORDERED: ISOVUE-370 76% 100ML VIAL As Ordered ONE (09:49)
[2022-01-08 09:58] LABS: BASO % 0.3 % (0.0-1.0); EOS # 0.2 10^3/uL (0.0-0.5); EOS % 1.8 % (0.0-3.0); HEMATOCRIT 44.4 % (36.0-47.0); HEMOGLOBIN 14.3 g/dl (12.0-15.5); LYMPH % 21.7 % (24.0-44.0); MEAN CORPUSCULAR HEMOGLOBIN 26.6 pg (27.0-33.0); MEAN CORPUSCULAR HGB CONC 32.2 g/dl (32.0-36.5); MEAN CORPUSCULAR VOLUME 82.5 fl (80.0-96.0); MONO # 0.6 10^3/uL (0.0-0.8); MONO % 6.9 % (2.0-8.0); NEUTROPHILS # 6.3 10^3/uL (1.5-8.5); NEUTROPHILS % 68.9 % (36.0-66.0); PLATELET COUNT, AUTOMATED 369 10^3/uL (150-450); RED BLOOD COUNT 5.38 10^6/uL (4.00-5.40); WHITE BLOOD COUNT 9.1 10^3/uL (4.0-10.0)
[2022-01-08 10:08] LABS: INR 1.01; PROTHROMBIN TIME 13.7 SECONDS (12.7-14.5)
[2022-01-08 10:09] LABS: PARTIAL THROMBOPLASTIN TIME 28.3 SECONDS (25.9-37.0)
[2022-01-08] MEDS ORDERED: CLON1TAB8 (10:18)
[2022-01-08 10:26] LABS: RSV AMPLIFICATION NEGATIVE (NEGATIVE)
[2022-01-08 10:31] LABS: BLOOD UREA NITROGEN 11 MG/DL (7-18); CALCIUM LEVEL 9.4 MG/DL (8.5-10.1); CARBON DIOXIDE LEVEL 26 MEQ/L (21-32); CHLORIDE LEVEL 106 MEQ/L (98-107); CREATININE FOR GFR 0.94 MG/DL (0.55-1.30); ETHYL ALCOHOL (ETHANOL) 0.003 % (0.000-0.010); GLOMERULAR FILTRATION RATE > 60.0 (>58); GLUCOSE, FASTING 83 MG/DL (70-100); POTASSIUM SERUM 3.6 MEQ/L (3.5-5.1); SODIUM LEVEL 137 MEQ/L (136-145)
[2022-01-08 10:35] LABS: CK-MB VALUE MASS < 1.0 NG/ML (<3.6); CPK CREATINE PHOSPHOKINASE 220 U/L (26-192); MB/CK RELATIVE INDEX 0.45 (< OR =4)
[2022-01-08] MEDS ORDERED: NS 1,000 ML IV ONE (11:05)
[2022-01-08] MEDS ORDERED: diphenhydrAMINE 50MG/ML VIAL (J1200) IV ONE (11:05)
[2022-01-08] MEDS ORDERED: KETOROLAC 30 MG/ML 1ML VIAL IV ONE (11:05)
[2022-01-08] MEDS ORDERED: ACETAMINOPHEN 500 MG TAB PO ONE (11:05)
[2022-01-08 11:57] LABS: AMPHETAMINES LEVEL URINE NEGATIVE (NEGATIVE); BARBITURATES URINE NEGATIVE (NEGATIVE); BENZODIAZEPINES URINE NEGATIVE (NEGATIVE); CANNABINOIDS URINE NEGATIVE (NEGATIVE); COCAINE METABOLITE URINE NEGATIVE (NEGATIVE); METHADONE URINE NEGATIVE (NEGATIVE); OPIATES URINE NEGATIVE (NEGATIVE); PHENCYCLIDINE URINE NEGATIVE (NEGATIVE)
[2022-01-08 12:30] VITALS: BP 164/91
== END 2022-01-08 13:10 | disposition home or self-care (01) ==
LOC: M ED 08:57
DX: G43.809 Other migraine, not intractable, without status migrainosus (principal); I10 Essential (primary) hypertension; F41.9 Anxiety disorder, unspecified; Z85.3 Personal history of malignant neoplasm of breast; F17.200 Nicotine dependence, unspecified, uncomplicated; Z79.899 Other long term (current) drug therapy
CPT/HCPCS: 70450; 70496; 70498; 71045; 80047; 80048; 80307; 82077; 82550; 82553; 84484; 84702; 85025; 85610; 85730; 87631; 93005; 93041; 94760; 96361; 96374; 96375; 99285; J1885; J2765; Q9967

== ENCOUNTER → 2022-06-01 | Outpatient (CLI) | payer BC ==
[~2022-06-01] MED LIST changes: +LAMO25TA4; -PAXI40TA10 PO; +PAXI40TA12 PO
[2022-06-01 18:11] LABS: MONO SCRN NEGATIVE (NEGATIVE)
== END ==
LOC: M PLALAB 14:34
PROVIDERS: ATTEND Emergency Medicine
DX: R53.83 Other fatigue (principal)

== ENCOUNTER → 2022-11-29 | Outpatient (CLI) | payer BC | LOC: M WHC 11:14 | PROVIDERS: ATTEND Nurse Practitioner Family | DX: Z12.31 Encounter for screening mammogram for malignant neoplasm of breast (principal); Z53.8 Procedure and treatment not carried out for other reasons ==

== ENCOUNTER → 2022-11-29 | Outpatient (REF) | payer BC | LOC: M PLALAB 14:03 | PROVIDERS: ATTEND Nurse Practitioner Family | DX: Z53.9 Procedure and treatment not carried out, unspecified reason (principal) ==

== ENCOUNTER → 2022-12-08 | Outpatient (CLI) | payer BC | LOC: M WHC 11:06 | PROVIDERS: ATTEND Nurse Practitioner Family | DX: N64.59 Other signs and symptoms in breast (principal); Z85.3 Personal history of malignant neoplasm of breast; N60.02 Solitary cyst of left breast; R92.8 Other abnormal and inconclusive findings on diagnostic imaging of breast | CPT/HCPCS: 76641; 77065; G0279 ==

== ENCOUNTER → 2023-07-11 | Outpatient (CLI) | payer BC ==
[~2023-07-11] MED LIST changes: +PROHANCE 279.3MG/ML 15ML VIAL ONE; +PROHANCE 279.3MG/ML 5ML VIAL ONE
== END ==
LOC: M PLAIMG 08:11
PROVIDERS: ATTEND Nurse Practitioner Family
DX: R92.8 Other abnormal and inconclusive findings on diagnostic imaging of breast (principal); Z85.3 Personal history of malignant neoplasm of breast; R21 Rash and other nonspecific skin eruption
CPT/HCPCS: A9576; C8908

== ENCOUNTER → 2023-08-16 | Outpatient (REF) | payer BC ==
[~2023-08-16] MED LIST changes: -PROHANCE 279.3MG/ML 15ML VIAL ONE; -PROHANCE 279.3MG/ML 5ML VIAL ONE
== END ==
LOC: M SFHCWAGY 17:24
PROVIDERS: ATTEND Nurse Practitioner Family
DX: N64.9 Disorder of breast, unspecified (principal)

== ENCOUNTER → 2023-11-08 | Outpatient (CLI) | payer BC ==
[~2023-11-08] MED LIST changes: +CLOM1CAP3 PO; -CLOM25CA2 PO; +FLUO-290 PO; -FLUO10CA18 PO
[2023-11-08 18:19] LABS: BASO % 0.3 % (0.0-1.0); EOS # 0.3 10^3/uL (0.0-0.5); EOS % 2.5 % (0.0-3.0); HEMATOCRIT 41.1 % (36.0-47.0); HEMOGLOBIN 12.8 g/dl (12.0-15.5); LYMPH # 2.3 10^3/uL (1.5-5.0); LYMPH % 20.1 % (24.0-44.0); MEAN CORPUSCULAR HEMOGLOBIN 24.5 pg (27.0-33.0); MEAN CORPUSCULAR HGB CONC 31.1 g/dl (32.0-36.5); MEAN CORPUSCULAR VOLUME 78.6 fl (80.0-96.0); MONO # 0.9 10^3/uL (0.0-0.8); MONO % 7.9 % (2.0-8.0); NEUTROPHILS % 68.7 % (36.0-66.0); PLATELET COUNT, AUTOMATED 386 10^3/uL (150-450); RED BLOOD COUNT 5.23 10^6/uL (4.00-5.40); WHITE BLOOD COUNT 11.6 10^3/uL (4.0-10.0)
[2023-11-08 18:45] LABS: ALBUMIN 3.4 G/DL (3.2-5.2); ALKALINE PHOSPHATASE 106 U/L (46-116); ALT/SGPT 19 U/L (7.0-40); AST/SGOT 9 U/L (<34); BILIRUBIN,TOTAL 0.2 MG/DL (0.3-1.2); BLOOD UREA NITROGEN 17 MG/DL (9-23); CALCIUM LEVEL 9.6 MG/DL (8.5-10.1); CARBON DIOXIDE LEVEL 25 MMOL/L (20-31); CHLORIDE LEVEL 108 MMOL/L (98-107); CHOLESTEROL LEVEL 158 MG/DL (<200); CHOLESTEROL RISK RATIO 4.64 (<5); CREATININE FOR GFR 0.81 MG/DL (0.55-1.30); GLOMERULAR FILTRATION RATE > 60.0 (>58); GLUCOSE, FASTING 96 MG/DL (60-100); LDL CHOLESTEROL 54.2 MG/DL (<100); POTASSIUM SERUM 3.9 MMOL/L (3.5-5.1); SODIUM LEVEL 141 MMOL/L (136-145); TOTAL PROTEIN 6.3 G/DL (5.7-8.2); TRIGLYCERIDES LEVEL 349 MG/DL (<150)
[2023-11-08 19:05] LABS: HEMOGLOBIN A1c 5.1 % (4.0-6.0)
== END ==
LOC: M LAB 17:07
PROVIDERS: ATTEND Emergency Medicine
DX: I10 Essential (primary) hypertension (principal); E78.1 Pure hyperglyceridemia

== ENCOUNTER 2023-12-05 09:33 | Emergency (ER) | payer BC ==
[~2023-12-05] VITALS: Ht 165.1 cm; Wt 122.5 kg
[2023-12-05] MEDS ORDERED: ISOVUE-370 76% 100ML VIAL As Ordered ONE (09:53)
[2023-12-05 10:45] LABS: BASO % 0.4 % (0.0-1.0); EOS # 0.2 10^3/uL (0.0-0.5); HEMATOCRIT 39.2 % (36.0-47.0); HEMOGLOBIN 12.7 g/dl (12.0-15.5); LYMPH # 1.9 10^3/uL (1.5-5.0); LYMPH % 17.5 % (24.0-44.0); MEAN CORPUSCULAR HEMOGLOBIN 25.5 pg (27.0-33.0); MEAN CORPUSCULAR HGB CONC 32.4 g/dl (32.0-36.5); MEAN CORPUSCULAR VOLUME 78.6 fl (80.0-96.0); MONO # 0.8 10^3/uL (0.0-0.8); MONO % 7.2 % (2.0-8.0); NEUTROPHILS # 7.8 10^3/uL (1.5-8.5); NEUTROPHILS % 72.2 % (36.0-66.0); PLATELET COUNT, AUTOMATED 309 10^3/uL (150-450); RED BLOOD COUNT 4.99 10^6/uL (4.00-5.40); WHITE BLOOD COUNT 10.8 10^3/uL (4.0-10.0)
[2023-12-05 10:57] LABS: INR 1.06; PARTIAL THROMBOPLASTIN TIME 26.8 SECONDS (24.8-34.2); PROTHROMBIN TIME 13.5 SECONDS (12.5-14.5)
[2023-12-05 11:46] LABS: BLOOD UREA NITROGEN 10 MG/DL (9-23); CALCIUM LEVEL 8.4 MG/DL (8.5-10.1); CARBON DIOXIDE LEVEL 24 MMOL/L (20-31); CHLORIDE LEVEL 107 MMOL/L (98-107); CREATININE FOR GFR 0.66 MG/DL (0.55-1.30); GLOMERULAR FILTRATION RATE > 60.0 (>58); GLUCOSE, FASTING 81 MG/DL (60-100); POTASSIUM SERUM 3.7 MMOL/L (3.5-5.1); SODIUM LEVEL 137 MMOL/L (136-145)
[2023-12-05] MEDS ORDERED: IBUP200C25 PO (12:29)
[2023-12-05] MEDS ORDERED: MODA200T15 PO (12:29)
[2023-12-05] MEDS ORDERED: HOME MED LIST COMPLETE! XX SCH (12:30)
[2023-12-05 12:44] VITALS: BP 170/92; TEMP 98.4; O2SAT 95
== END 2023-12-05 13:03 | disposition home or self-care (01) ==
LOC: M ED 09:33
DX: G43.109 Migraine with aura, not intractable, without status migrainosus (principal); F41.9 Anxiety disorder, unspecified; F32.A Depression, unspecified; I10 Essential (primary) hypertension; E78.5 Hyperlipidemia, unspecified; C50.919 Malignant neoplasm of unspecified site of unspecified female breast; G93.32 Myalgic encephalomyelitis/chronic fatigue syndrome; G47.33 Obstructive sleep apnea (adult) (pediatric); Z79.899 Other long term (current) drug therapy; Z79.1 Long term (current) use of non-steroidal anti-inflammatories (NSAID)
CPT/HCPCS: 36415; 70450; 70496; 70498; 71045; 80047; 80048; 85025; 85610; 85730; 86850; 86900; 86901; 93005; 93041; 94760; 99285; Q9967

== ENCOUNTER → 2023-12-31 | Outpatient (CLI) | payer BC ==
[~2023-12-31] MED LIST changes: +IBUP200C25 PO; +MODA200T15 PO
== END ==
LOC: M RAD 08:31
PROVIDERS: ATTEND Emergency Medicine
DX: R20.2 Paresthesia of skin (principal); J32.3 Chronic sphenoidal sinusitis

== ENCOUNTER 2024-06-18 11:24 | Day surgery (SDC) | payer OTHER ==
[~2024-06-18] VITALS: Ht 165.1 cm; Wt 121.6 kg
[~2024-06-18 11:24] MED LIST changes: +GABA-1172 PO; -GABA-282 PO; -OLAN2.5T25 PO; +OLAN2.5T53 PO; +SEMA0.252 SQ
[2024-06-18] MEDS ORDERED: propofoL 200 MG/20 ML VIAL As Ordered ONE (11:25)
[2024-06-18] MEDS ORDERED: LIDOCAINE 2% 100MG/5ML SDV (FOR ANES.) As Ordered ONE (11:25)
[2024-06-18] MEDS ORDERED: fentaNYL 100 MCG/2 ML INJECTION As Ordered ONE (11:26)
[2024-06-18] MEDS ORDERED: ONDANSETRON 4MG 2ML VIAL As Ordered ONE (12:09)
[2024-06-18] MEDS ORDERED: CETACAINE SPRAY 5GM As Ordered ONE (12:16)
[2024-06-18 12:45] VITALS: TEMP 97.6
[2024-06-18 13:00] VITALS: BP 134/65; O2SAT 95
== END 2024-06-18 13:15 | disposition home or self-care (01) ==
LOC: M OPP 11:24
PROVIDERS: ATTEND Internal Medicine Gastroenterology
DX: Z12.11 Encounter for screening for malignant neoplasm of colon (principal); K64.0 First degree hemorrhoids; K44.9 Diaphragmatic hernia without obstruction or gangrene; K22.89 Other specified disease of esophagus; R12 Heartburn; G47.30 Sleep apnea, unspecified; Z79.85 Long-term (current) use of injectable non-insulin antidiabetic drugs; Z79.899 Other long term (current) drug therapy
CPT/HCPCS: 43239; 45378; 88305; J2405; J3010

== ENCOUNTER → 2024-11-07 | Outpatient (CLI) | payer OTHER ==
[~2024-11-07] MED LIST changes: +LAMO-18; -LAMO25TA4
[2024-11-07 15:33] LABS: BASO # 0.1 10^3/uL (0.0-0.2); BASO % 0.4 % (0.0-1.0); EOS # 0.2 10^3/uL (0.0-0.5); EOS % 1.6 % (0.0-3.0); LYMPH # 2.6 10^3/uL (1.5-5.0); LYMPH % 21.5 % (24.0-44.0); MONO # 1.0 10^3/uL (0.0-0.8); MONO % 8.1 % (2.0-8.0); NEUTROPHILS # 8.1 10^3/uL (1.5-8.5); NEUTROPHILS % 67.4 % (36.0-66.0); PLATELET COUNT, AUTOMATED 432 10^3/uL (150-450)
[2024-11-07 15:37] LABS: IRON (FE) 46.0 UG/DL (50-170); PERCENT SATURATION 11.5 % (13.2-45.0)
[2024-11-07 15:41] LABS: PROLACTIN 27.99 NG/ML
[2024-11-07 15:42] LABS: FREE T4 0.98 NG/DL (0.89-1.76)
[2024-11-07 17:26] LABS: ESTIMATED AVERAGE GLUCOSE 120.0 MG/DL (60-110)
[2024-11-13 21:52] LABS: DEHYDROEPIANDROSTERONE SULFATE 55 mcg/dL (15-205)
== END ==
LOC: M PLALAB 12:23
PROVIDERS: ATTEND Nurse Practitioner Family
DX: L70.0 Acne vulgaris (principal); R53.83 Other fatigue; N93.9 Abnormal uterine and vaginal bleeding, unspecified

== ENCOUNTER → 2024-12-04 | Outpatient (CLI) | payer OTHER | LOC: M WHC 08:48 | PROVIDERS: ATTEND Nurse Practitioner Family | DX: N93.9 Abnormal uterine and vaginal bleeding, unspecified (principal) ==

== ENCOUNTER → 2025-01-29 | Outpatient (REF) | payer OTHER | LOC: M SFHCWAGY 15:31 | PROVIDERS: ATTEND Nurse Practitioner Family | DX: N93.9 Abnormal uterine and vaginal bleeding, unspecified (principal) ==

== ENCOUNTER → 2025-03-13 | Outpatient (REF) | payer OTHER ==
[2025-03-15 14:28] LABS: HPV APTIMA Not Detected (Not Detected)
== END ==
LOC: M SFHCWAGY 10:17
PROVIDERS: ATTEND Nurse Practitioner Family
DX: Z12.4 Encounter for screening for malignant neoplasm of cervix (principal); N73.9 Female pelvic inflammatory disease, unspecified
CPT/HCPCS: 87070; 87624; G0123

== ENCOUNTER → 2025-03-13 | Outpatient (CLI) | payer OTHER | LOC: M WHC 07:43 | PROVIDERS: ATTEND Nurse Practitioner Family | DX: Z12.31 Encounter for screening mammogram for malignant neoplasm of breast (principal); R92.333 Mammographic heterogeneous density, bilateral breasts; Z85.3 Personal history of malignant neoplasm of breast | CPT/HCPCS: 77066; G0279 ==